=== PATIENT | male | born 1930 | race Caucasian/White ===

== ENCOUNTER → 2017-04-28 | Outpatient (CLI) | payer MEDICARE, BC ==
[2015-07-09 09:15] VITALS: BMI 24.8
[~2017-04-28] MED LIST: AMOX-559 PO; ENOX40DI8 SQ; FLUD0.1T12 PO; GOLYTE PO; VIT-9 PO; VIT1CAPS39 PO; WARF-18 PO; WARF2.5T11 PO
--- NOTE | 2017-05-01 06:19 | RT HOLTER TEST ---
FACILITY: [facility] PATIENT NAME: GENEVIEVE CLINE : [id number] MR: [id number] V: [id number] EXAM DATE: ORDERING PHYSICIAN: SARA POOLE TECHNOLOGIST: OMAR Hook-up date: 2017-04-28 13:04:00 Duration: 47:59:00 Test Indications: HYPOTENSION Medications: [id number] QRS complexes 83 Ventricular ectopics which represent <1 % of total QRS comp. 119 Supraventricular ectopics which represent <1 % of total QRS comp. * Paced QRS complexes which represent % of total QRS comp. VENTRICULAR ECTOPY 81 Isolated 0 Bigeminal Cycles 1 Couplets 0 Runs 0 Beats in Runs * Beats LONGEST at * BPM at :: -- * Beats FASTEST at * BPM at :: -- SUPRAVENTRICULAR ECTOPY 75 Isolated 10 Couplets 4 Runs 24 Beats in Runs 15 Beats LONGEST at 124 BPM at 03:35:34 2017-04-30 15 Beats FASTEST at 124 BPM at 03:35:34 2017-04-30 HEART RATES 51 MIN at 22:20:18 2017-04-28 68 AVG 132 MAX at 03:35:37 2017-04-30 LONGEST RR 1.552 secs at 22:20:13 2017-04-28 S-T LEVELS Channel 1 -12.800 mm MIN at 13:04:00 2017-04-28 -12.800 mm MAX at 13:04:00 2017-04-28 Channel 2 -12.800 mm MIN at 13:04:00 2017-04-28 -12.800 mm MAX at 13:04:00 2017-04-28 Channel 3 -12.800 mm MIN at 13:04:00 2017-04-28 -12.800 mm MAX at 13:04:00 2017-04-28 There were no arrhythymias with symptom events. The patient had a bundle branch block and was in a s inus rhythm predominantly during the test. There were occasional asymptomatic ventricular (VE) ectopy and supraventricular ectopy (SVE). There was one 24 beat run of SVE that was about 132 beats per minute. Confirmed by KEDAR SMITH ([id number]) on 05/01/2017 6:19:31 AM Referred By: Overread By: KEDAR SMITH
== END ==
LOC: RESP 07:08
PROVIDERS: ATTEND Physician Assistant
DX: R42 Dizziness and giddiness (principal); I45.9 Conduction disorder, unspecified; E27.1 Primary adrenocortical insufficiency
CPT/HCPCS: 93225; 93226

== ENCOUNTER → 2017-05-17 | Outpatient (CLI) | payer MEDICARE, BC ==
[2015-07-09 09:15] VITALS: BMI 24.8
[~2017-05-17] MED LIST changes: -WARF-18 PO; +WARF5TAB23 PO
== END ==
LOC: LAB 13:07
PROVIDERS: ATTEND Internal Medicine Cardiovascular Disease
DX: I95.1 Orthostatic hypotension (principal); Z79.899 Other long term (current) drug therapy
CPT/HCPCS: 36415; 84443

== ENCOUNTER → 2017-07-19 | Outpatient (CLI) | payer MEDICARE, BC ==
[2015-07-09 09:15] VITALS: BMI 24.8
[~2017-07-19] MED LIST changes: +REGADENOSON 0.4 MG/5 ML SYR ONE
--- NOTE | 2017-07-20 14:17 | RADIOLOGY IMAGING REPORT ---
FACILITY: [facility] PATIENT NAME: Gary Puente : 1930 MR: [id number] V: [id number] EXAM DATE: ORDERING PHYSICIAN: NAMITA LANG TECHNOLOGIST: Location: [facility] - [place] Patient: Gary Puente : 1930 Visit/Account:[id number] Date of Sevice: 07/19/2017 REGADENOSON (LEXISCAN) MYOCARDIAL PERFUSION IMAGING. EXAMINATION: Single isotope SPECT imaging with regadenoson infusion and gated SPECT imaging. DATE OF EXAMINATION: July 19, 2017. REQUESTING PHYSICIAN:RICKEY INDICATION: Dizziness low blood pressure PROCEDURE: After informed consent the patient received an intravenous injection of Tc-99m sestamibi followed at an appropriate time interval by rest imaging. The patient then subsequently received an intravenous infusion of 0.4 mg of regadenoson per protocol without complication. Resting heart rate was 61 bpm with a peak heart rate of 86 bpm. Blood pressure at rest was 158/86 and following infusi on was 117/61 . Baseline EKG demonstrates sinus rhythm with a left bundle-branch block. There were no EKG changes of ischemia following infusion. Non-specific symptoms were reported. The patient the n received an intravenous injection of Tc-99m sestamibi followed by stress imaging. DOSE of Tc-99m sestamibi (mCi): REST: 11.7 STRESS: 29.6 RAW DATA: Examination of the summed raw data revealed a good quality study. MYOCARDIAL PERFUSION: The tomographic images demonstrate normal myocardial perfusion without compell ing evidence for myocardial ischemia or infarct. GATED IMAGES: The gated images demonstrate septal hypokinesis with preserved LV function with LVEF 5 8%. IMPRESSION: 1. Nondiagnostic ECG portion of Lexiscan stress test. Left bundle-branch block noted throughout the study 2. Normal myocardial perfusion study without compelling evidence for myocardial ischemia or infarct 3. Normal LV systolic performance with LVEF 58% with septal wall motion abnormality related to left b undle-branch block noted on EKG. Report Dictated By: Roger Hughes at 07/20/2017 2:10 PM Report E-Signed By: Roger Hughes at 07/20/2017 2:14 PM WSN:[id number]
--- NOTE | 2017-07-20 14:54 | RT STRESS TEST REPORT ---
FACILITY: [facility] - [place] PATIENT NAME: GENEVIEVE CLINE : [id number] MR: [id number] V: [id number] EXAM DATE: ORDERING PHYSICIAN: DEANDRE BUTLER TECHNOLOGIST: Jill Acquisition Time: 2017-07-19 14:22:25 Total Exercise Time: 00:01:00 Test Indications: dizziness Medications: SEE NUCLEAR MED SHEET Protocol: LEXISCAN Max HR: 086 BPM 63% of Pred: 136 BPM Max BP: 158/086 mmHG Max Work Load: 1.0 METS see nuclear med report Confirmed by JORDAN NOONAN ([id number]) on 07/20/2017 2:53:40 PM Referred By: Overread By: JORDAN NOONAN
== END ==
LOC: NUC 01:07
PROVIDERS: ATTEND Internal Medicine Cardiovascular Disease
DX: R42 Dizziness and giddiness (principal); I95.9 Hypotension, unspecified; I44.7 Left bundle-branch block, unspecified
CPT/HCPCS: 78452; 93017; A9500; J2785

== ENCOUNTER → 2017-10-26 | Outpatient (CLI) | payer MEDICARE, BC ==
[2015-07-09 09:15] VITALS: BMI 24.8
[~2017-10-26] MED LIST changes: +ACET500T68 PO; +MIDO5TAB20 PO; -REGADENOSON 0.4 MG/5 ML SYR ONE
== END ==
LOC: LAB 17:10
PROVIDERS: ATTEND Family Medicine
DX: Z02.9 Encounter for administrative examinations, unspecified (principal)

== ENCOUNTER → 2017-10-27 | Outpatient (CLI) | payer MEDICARE, BC ==
[2015-07-09 09:15] VITALS: BMI 24.8
[2017-10-27 15:01] LABS: PLATELET COUNT, AUTOMATED 151 K/uL (150-450)
== END ==
LOC: LAB 14:47
PROVIDERS: ATTEND Family Medicine
DX: E27.1 Primary adrenocortical insufficiency (principal)
CPT/HCPCS: 36415; 82040; 82247; 82310; 82374; 82435; 82565; 82947; 84075; 84132; 84155; 84295; 84450; 84460; 84520; 85025

== ENCOUNTER 2018-02-18 17:43 | Emergency (ER) | payer MEDICARE, BC ==
[2015-07-09 09:15] VITALS: Wt 59.0 kg
[~2018-02-18 17:43] MED LIST changes: -MULT-859 PO; -POTA20PA31 PO; -POTA20TA85 PO; -VENL75CA58 PO
--- NOTE | 2018-02-18 18:08 | ER Report ---
History and Physical Time Seen By MD: 18:03 Hx. of Stated Complaint: possible seizure witness are not here yet HPI/ROS CHIEF COMPLAINT: syncope and shaking HISTORY OF PRESENT ILLNESS: This is an 87 year old male. He has postural hypotension, on Midodrine and fludricortisone. Had an episode while up and going to the bathroom where he felt dizzy, was clinging to the door frame. His found him and helped lower him to the seat of the walker. Started to have an episode of syncope with some shaking of his arms, then came back to consciousness, normal level immediately, without any signs of a post-ictal state. No history of seizures. No chest pain or shortness of breath. No headache. Normal vision. No fevers or chills. No cough or sore throat. He has normal bowel and bladder function. Many episodes of passing out from the hypotension in the past. No chest pain at this time. Allergies: Coded Allergies: No Known Drug Allergies (Unverified , 02/18/18) Home Meds Active Scripts Sertraline Hcl (SERTRALINE HCL) 25 Mg Tablet, 0.5 TAB PO QDAY for 30 Days, #30 TAB Prov:RENU ESCUDERO MD 02/09/18 Midodrine Hcl (MIDODRINE HCL) 10 Mg Tablet, 10 MG PO TID for 30 Days, #90 TAB 4 Refills Prov:RENU ESCUDERO MD 01/24/18 Fludrocortisone Acetate (FLUDROCORTISONE ACETATE) 0.1 Mg Tablet, 0.1 MG PO BID for 30 Days, #60 TAB 4 Refills Prov:RENU ESCUDERO MD 12/19/17 Reported Medications Warfarin Sodium (WARFARIN SODIUM) 2.5 Mg Tablet, 2.5 MG PO QDAY 09/26/17 Acetaminophen (TYLENOL EXTRA STRENGTH) 500 Mg Tablet, 2 TAB PO 2-3XD, CAP 09/19/17 Reviewed Nurses Notes: Yes Hx Smoking: Yes (CHEW 1/4 CAN/DAY X 50 YRS) Smoking Status: Never Smoker Exposure to Second Hand Smoke?: No Hx Substance Use Disorder: No Hx Alcohol Use: No Constitutional Vital Sign - Last 24 Hours 02/18/18 02/18/18 02/18/18 02/18/18 17:43 17:47 17:50 17:54 Temp 97.5 Pulse 69 70 Resp 14 12 B/P (MAP) 145/85 (105) 145/85 Pulse Ox 99 98 O2 Delivery Nasal Cannula O2 Flow Rate 2.0 02/18/18 02/18/18 02/18/18 02/18/18 18:00 18:13 18:18 18:30 Pulse 68 69 Resp 21 11 B/P (MAP) 153/81 (105) 146/79 (101) Pulse Ox 98 97 02/18/18 02/18/18 02/18/18 02/18/18 18:35 19:05 19:10 19:25 Pulse 68 75 73 74 Resp 17 12 11 Pulse Ox 98 98 97 98 02/18/18 02/18/18 02/18/18 02/18/18 19:30 19:40 19:55 20:00 Pulse 74 75 Resp 23 16 B/P (MAP) 126/73 (90) 120/73 (89) Pulse Ox 98 98 02/18/18 02/18/18 20:10 20:15 Pulse 72 77 Resp 20 21 Pulse Ox 98 98 Physical Exam General Appearance: The patient is alert. No acute distress. Eyes: Pupils are equal, round. Reactive to light. No pallor, injection or icterus. Extraocular movements are intact. ENT: Mucous membranes are moist. Normal oral mucosa. Posterior oropharynx is normal. Neck: Supple and non tender. No lymphadenopathy. Respiratory: Lungs are clear to auscultation. Cardiovascular: Regular rate and rhythm. No murmurs, gallops or rubs. Normal capillary refill. No edema. Gastrointestinal: Abdomen is soft and non tender. Nondistended. No masses or organomegaly. Normal active bowel sounds. Neurological: Alert and oriented x3. Cranial nerves II through XII show no acute deficits on my exam. No focal neurologic deficits in the extremities. Skin: Warm and dry. Musculoskeletal: Extremities are nontender. No tenderness in palpation of the cervical, thoracic and lumbar spine. DIFFERENTIAL DIAGNOSIS: After history and physical exam, differential diagnosis was considered for syncope including but not limited to vasovagal syncope, arrhythmia, dehydration, and blood loss. Medical Decision Making Data Points Result Diagram: 02/18/18 1740 02/18/18 1740 Laboratory Hematology Test 02/18/18 17:40 Red Blood Count 4.95 M/uL (4.00-5.60) Mean Corpuscular Volume 90.9 fL (80.0-96.0) Mean Corpuscular Hemoglobin 31.9 pg (26.0-33.0) Mean Corpuscular Hemoglobin Concent 35.1 g/dL (32.0-36.0) Red Cell Distribution Width 13.1 % (11.5-14.5) Mean Platelet Volume 8.3 fL (7.2-11.1) Neutrophils (%) (Auto) 54.2 % (39.4-72.5) Lymphocytes (%) (Auto) 34.9 % (17.6-49.6) Monocytes (%) (Auto) 7.7 % (4.1-12.4) Eosinophils (%) (Auto) 2.0 % (0.4-6.7) Basophils (%) (Auto) 1.2 % (0.3-1.4) Nucleated RBC Relative Count (auto) 0.2 /100WBC Neutrophils # (Auto) 3.3 K/uL (2.0-7.4) Lymphocytes # (Auto) 2.1 K/uL (1.3-3.6) Monocytes # (Auto) 0.5 K/uL (0.3-1.0) Eosinophils # (Auto) 0.1 K/uL (0.0-0.5) Basophils # (Auto) 0.1 K/uL (0.0-0.1) Nucleated RBC Absolute Count (auto) 0.01 K/uL Prothrombin Time 17.6 seconds (12.0-14.4) Prothromb Time International Ratio 1.43 Sodium Level 140 mmol/L (137-145) Potassium Level 3.1 mmol/L (3.5-5.0) Chloride Level 104 mmol/L (98-107) Carbon Dioxide Level 28 mmol/L (22-30) Blood Urea Nitrogen 15 mg/dl (9-21) Creatinine 0.90 mg/dl (0.66-1.25) Glomerular Filtration Rate Calc > 60.0 Random Glucose 102 mg/dl (75-110) Calcium Level 9.5 mg/dl (8.4-10.2) Magnesium Level 2.3 mg/dl (1.7-2.2) Total Bilirubin 0.7 mg/dl (0.2-1.3) Aspartate Amino Transf (AST/SGOT) 30 U/L (0-35) Alanine Aminotransferase (ALT/SGPT) 44 U/L (0-56) Alkaline Phosphatase 118 U/L (0-126) Troponin I < 0.012 ng/ml Total Protein 6.9 g/dl (6.3-8.2) Albumin 4.0 g/dl (3.5-5.0) Chemistry Test 02/18/18 17:40 White Blood Count 6.0 k/uL (4.5-11.0) Red Blood Count 4.95 M/uL (4.00-5.60) Hemoglobin 15.8 g/dL (14.0-18.0) Hematocrit 45.0 % (42.0-52.0) Mean Corpuscular Volume 90.9 fL (80.0-96.0) Mean Corpuscular Hemoglobin 31.9 pg (26.0-33.0) Mean Corpuscular Hemoglobin Concent 35.1 g/dL (32.0-36.0) Red Cell Distribution Width 13.1 % (11.5-14.5) Platelet Count 175 K/uL (150-450) Mean Platelet Volume 8.3 fL (7.2-11.1) Neutrophils (%) (Auto) 54.2 % (39.4-72.5) Lymphocytes (%) (Auto) 34.9 % (17.6-49.6) Monocytes (%) (Auto) 7.7 % (4.1-12.4) Eosinophils (%) (Auto) 2.0 % (0.4-6.7) Basophils (%) (Auto) 1.2 % (0.3-1.4) Nucleated RBC Relative Count (auto) 0.2 /100WBC Neutrophils # (Auto) 3.3 K/uL (2.0-7.4) Lymphocytes # (Auto) 2.1 K/uL (1.3-3.6) Monocytes # (Auto) 0.5 K/uL (0.3-1.0) Eosinophils # (Auto) 0.1 K/uL (0.0-0.5) Basophils # (Auto) 0.1 K/uL (0.0-0.1) Nucleated RBC Absolute Count (auto) 0.01 K/uL Prothrombin Time 17.6 seconds (12.0-14.4) Prothromb Time International Ratio 1.43 Glomerular Filtration Rate Calc > 60.0 Calcium Level 9.5 mg/dl (8.4-10.2) Magnesium Level 2.3 mg/dl (1.7-2.2) Total Bilirubin 0.7 mg/dl (0.2-1.3) Aspartate Amino Transf (AST/SGOT) 30 U/L (0-35) Alanine Aminotransferase (ALT/SGPT) 44 U/L (0-56) Alkaline Phosphatase 118 U/L (0-126) Troponin I < 0.012 ng/ml Total Protein 6.9 g/dl (6.3-8.2) Albumin 4.0 g/dl (3.5-5.0) Coagulation Test 02/18/18 17:40 Prothrombin Time 17.6 seconds Prothromb Time International Ratio 1.43 EKG/Imaging EKG Interpretation 12 lead EKG: Rhythm: Normal sinus rhythm, rate 68 [place]: Left deviation QRS: Left bundle branch block, similar on comparison to prior EKGs ST segments: Otherwise negative Imaging EXAMINATION: Head CT without intravenous contrast HISTORY: Syncope. COMPARISON: 02/09/2017. TECHNIQUE: Contiguous axial images were obtained from the skull base to the vertex without intravenous contrast. Sagittal and coronal reformatted images are also submitted. One of the following dose optimization techniques was utilized in the performance of this exam: Automated exposure control; adjustment of the mA and/or kV according to the patient's size; or use of an iterative reconstruction technique. Specific details can be referenced in the facility's radiology CT exam operational policy. FINDINGS: Brain and intracranial structures: Mild cerebral volume loss with corresponding sulcal and ventricular prominence. Unchanged multifocal encephalomalacia in the right cerebral hemisphere. Mild patchy hypoattenuation in the white matter elsewhere, similar to previous examination. No midline shift, acute hemorrhage, mass, or evidence of acute infarct. Vessels: Mild calcified plaque of the left carotid siphon. Calvarium / scalp: Negative. No acute fracture. Skull base / visualized face: Negative. Visualized sinuses / orbits: Lenses have been extracted or replaced. IMPRESSION: No CT evidence of acute intracranial pathology. Unchanged multifocal encephalomalacia. Mild white matter changes elsewhere, likely chronic small vessel ischemic changes Report Dictated By: Enrique Arciniega MD at 02/18/2018 7:11 PM CHEST SINGLE AP Indication: Syncope.. Comparison: 02/09/2017. Findings: Cardiomediastinal silhouette and pulmonary vessels within normal limits. There is no focal infiltrate or lobar consolidation. No pneumothorax or pleural effusion. No nodule. Upper abdomen is unremarkable. No acute bony abnormality. IMPRESSION: 1. No acute cardiopulmonary process. Report Dictated By: Carrington Fung at 02/18/2018 7:14 PM ED Course/Re-evaluation Clinical Indication for ER IV: Hydration, IV Access ED Course Labs, imaging and EKG are unremarkable. He is still dizzy with standing, but t aking his time he is okay. 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 Offered admission and talked briefly to the hospitalist, but the patient would like to try to go home at this time. Recommended increased fluid intake and also taking time when getting up. Follow- up with Dr. Escudero as planned. Decision to Disposition Date: Feb 18, 2018 Decision to Disposition Time: 20:17 Depart Departure Latest Vital Signs Vital Signs Date Time Temp Pulse Resp B/P (MAP) Pulse Ox O2 Delivery O2 Flow Rate FiO2 02/18/18 20:15 77 21 98 02/18/18 20:00 120/73 (89) 02/18/18 17:54 2.0 02/18/18 17:50 97.5 Nasal Cannula Impression: Primary Impression: Syncope Additional Impression: Hypotension Condition: Improved Disposition: HOME OR SELF-CARE Referrals: RENU ESCUDERO MD (PCP) Patient Instructions: Syncope (ED) Additional Instructions: Increase fluid intake. No changes to medications. Take time when getting up and sit down if feeling lightheaded. Follow-up with Dr. Escudero as planned. Problem Qualifiers Primary Impression: Syncope Syncope type: unspecified Qualified Codes: R55 - Syncope and collapse Additional Impression: Hypotension Hypotension type: other hypotension type Qualified Codes: I95.89 - Other hypotension MOE MEDINA MD Feb 18, 2018 18:08
[2018-02-18 18:40] LABS: PLATELET COUNT, AUTOMATED 175 K/uL (150-450)
[2018-02-18 18:43] LABS: INR 1.43
--- NOTE | 2018-02-18 19:19 | RADIOLOGY IMAGING REPORT ---
FACILITY: [facility] - [place] PATIENT NAME: Gary Puente : 1930 MR: [id number] V: [id number] EXAM DATE: ORDERING PHYSICIAN: MOE MEDINA TECHNOLOGIST: Location: [facility] Patient: Gary Puente : 1930 Visit/Account:[id number] Date of Sevice: 02/18/2018 CHEST SINGLE AP Indication: Syncope.. Comparison: 02/09/2017. Findings: Cardiomediastinal silhouette and pulmonary vessels within normal limits. There is no focal infiltrate or lobar consolidation. No pneumothorax or pleural effusion. No nodule. Upper abdomen is unremarkable. No acute bony abnormality. IMPRESSION: 1. No acute cardiopulmonary process. Report Dictated By: Carrington Fung at 02/18/2018 7:14 PM Report E-Signed By: Carrington Fung at 02/18/2018 7:16 PM WSN:[id number]
--- NOTE | 2018-02-18 19:22 | RADIOLOGY IMAGING REPORT ---
FACILITY: [facility] PATIENT NAME: Gary Puente : 1930 MR: [id number] V: [id number] EXAM DATE: ORDERING PHYSICIAN: MOE MEDINA TECHNOLOGIST: Location: Patient: Gary Puente : 1930 Visit/Account:[id number] Date of Sevice: 02/18/2018 EXAMINATION: Head CT without intravenous contrast HISTORY: Syncope. COMPARISON: 02/09/2017. TECHNIQUE: Contiguous axial images were obtained from the skull base to the vertex without intraven ous contrast. Sagittal and coronal reformatted images are also submitted. One of the following dose optimization techniques was utilized in the performance of this exam: Autom ated exposure control; adjustment of the mA and/or kV according to the patient's size; or use of an i terative reconstruction technique. Specific details can be referenced in the facility's radiology C T exam operational policy. FINDINGS: Brain and intracranial structures: Mild cerebral volume loss with corresponding sulcal and ventricul ar prominence. Unchanged multifocal encephalomalacia in the right cerebral hemisphere. Mild patchy hypoattenuation in the white matter elsewhere, similar to previous examination. No midline shift, acute hemorrhage, mass, or evidence of acute infarct. Vessels: Mild calcified plaque of the left carotid siphon. Calvarium / scalp: Negative. No acute fracture. Skull base / visualized face: Negative. Visualized sinuses / orbits: Lenses have been extracted or replaced. IMPRESSION: No CT evidence of acute intracranial pathology. Unchanged multifocal encephalomalacia. Mild white matter changes elsewhere, likely chronic small ves ronel ischemic changes Report Dictated By: Enrique Arciniega MD at 02/18/2018 7:11 PM Report E-Signed By: Enrique Arciniega MD at 02/18/2018 7:18 PM WSN:[id number]
[2018-02-18 20:00] VITALS: BP 120/73
--- NOTE | 2018-02-18 20:02 | EKG ---
FACILITY: [facility] - [place] PATIENT NAME: GENEVIEVE CLINE : [id number] MR: [id number] V: [id number] EXAM DATE: ORDERING PHYSICIAN: MOE MEDINA TECHNOLOGIST: System Test Reason : NUEURO Blood Pressure : / mmHG Vent. Rate : 068 BPM Atrial Rate : 068 BPM P-R Int : 150 ms QRS Dur : 156 ms QT Int : 498 ms P-R-T Axes : 056 044 176 degrees QTc Int : 529 ms Normal sinus rhythm Left bundle branch block Abnormal ECG When compared with ECG of 09-FEB-2017 14:12, No significant change was found Confirmed by Sumit Underwood ([id number]) on 02/19/2018 7:14:02 AM Referred By: Confirmed By:Sumit Conley
== END 2018-02-18 20:29 | disposition home or self-care (01) ==
LOC: ER 18:18
DX: R55 Syncope and collapse (principal); I95.89 Other hypotension
CPT/HCPCS: 70450; 71045; 82040; 82247; 82310; 82374; 82435; 82565; 82947; 83735; 84075; 84132; 84155; 84295; 84450; 84460; 84484; 84520; 85025; 85610; 93005; 99284

== ENCOUNTER → 2018-02-18 | Outpatient (CLI) | payer MEDICARE, BC ==
[2015-07-09 09:15] VITALS: BMI 24.8
[~2018-02-18] MED LIST changes: +MIDO10TA9 PO; +MULT-859 PO; +POTA20PA31 PO; +POTA20TA85 PO; +SERT25TA90 PO; +VENL75CA58 PO
== END ==
LOC: AMB 17:10
PROVIDERS: ATTEND Nurse Practitioner
DX: R56.9 Unspecified convulsions (principal); I10 Essential (primary) hypertension
CPT/HCPCS: A0425; A0427

== ENCOUNTER 2018-02-19 09:19 | Emergency (ER) | payer MEDICARE, BC, OTHER ==
[2015-07-09 09:15] VITALS: Wt 63.5 kg
[~2018-02-19 09:19] MED LIST changes: -MULT-859 PO; -POTA20PA31 PO; -POTA20TA85 PO; -VENL75CA58 PO
--- NOTE | 2018-02-19 11:00 | EKG ---
FACILITY: [facility] [place] PATIENT NAME: GENEVIEVE CLINE : [id number] MR: [id number] V: [id number] EXAM DATE: ORDERING PHYSICIAN: LUZ ELENA COOPER TECHNOLOGIST: Test Reason : Blood Pressure : / mmHG Vent. Rate : 075 BPM Atrial Rate : 075 BPM P-R Int : 152 ms QRS Dur : 150 ms QT Int : 474 ms P-R-T Axes : 062 050 214 degrees QTc Int : 529 ms Normal sinus rhythm Left bundle branch block Abnormal ECG When compared with ECG of 18-FEB-2018 17:55, No significant change was found Confirmed by DEANDRE BUTLER ([id number]) on 02/20/2018 6:32:21 AM Referred By: Confirmed By:DEANDRE BUTLER
[2018-02-19 11:02] LABS: PLATELET COUNT, AUTOMATED 151 K/uL (150-450)
--- NOTE | 2018-02-19 11:05 | RADIOLOGY IMAGING REPORT ---
FACILITY: [facility] - [place] PATIENT NAME: Gary Puente : 1930 MR: [id number] V: [id number] EXAM DATE: ORDERING PHYSICIAN: LUZ ELENA COOPER TECHNOLOGIST: Location: [facility] - [place] Patient: Gary Puente : 1930 Visit/Account:[id number] Date of Sevice: 02/19/2018 Chest single view: HISTORY: Presyncope. COMPARISON: 02/18/2018 FINDINGS: Portable chest 1036 hours: Cardiomediastinal silhouette is within normal limits. There is no infiltrate or pleural effusion. No pneumothorax. Pulmonary vasculature is normal. IMPRESSION: No evidence of acute cardiopulmonary abnormality. Report Dictated By: Supriya Celestin MD at 02/19/2018 10:54 AM Report E-Signed By: Supriya Celestin MD at 02/19/2018 11:02 AM WSN:[id number]
[2018-02-19 11:56] VITALS: BP 139/76
--- NOTE | 2018-02-19 13:07 | ER Report ---
History and Physical Time Seen By MD: 09:45 Hx. of Stated Complaint: "I want to " HPI/ROS This is an 87-year-old male with a history of depression and Luckey's disease. He presents to the emergency department for the 2nd time in 24 hours. He was seen yesterday for presyncope. He returns to emergency department today with suicidal ideations. His family witnessed him looking for the ammunition that goes into his revolver at home. When they asked him, the patient stated that he had a plan to kill himself due to his ongoing illnesses. He is calm and cooperative in the emergency department, and states his family doesn't understand that he no longer wants to live with his chronic illness. He endorses SI. He feels as if it is his decision whether or not to kill himself, and states that his family does not understand. He has no other complaints. Remainder of the 14 system rev: Yes Allergies: Coded Allergies: No Known Drug Allergies (Unverified , 02/19/18) Home Meds Active Scripts Sertraline Hcl (SERTRALINE HCL) 25 Mg Tablet, 0.5 TAB PO QDAY for 30 Days, #30 TAB Prov:RENU ESCUDERO MD 02/09/18 Midodrine Hcl (MIDODRINE HCL) 10 Mg Tablet, 10 MG PO TID for 30 Days, #90 TAB 4 Refills Prov:RENU ESCUDERO MD 01/24/18 Fludrocortisone Acetate (FLUDROCORTISONE ACETATE) 0.1 Mg Tablet, 0.1 MG PO BID f or 30 Days, #60 TAB 4 Refills Prov:RENU ESCUDERO MD 12/19/17 Reported Medications Warfarin Sodium (WARFARIN SODIUM) 2.5 Mg Tablet, 2.5 MG PO QDAY 09/26/17 Acetaminophen (TYLENOL EXTRA STRENGTH) 500 Mg Tablet, 2 TAB PO 2-3XD, CAP 09/19/17 Reviewed Nurses Notes: Yes Old Medical Records Reviewed: Yes Hx Smoking: Yes (CHEW 1/4 CAN/DAY X 50 YRS) Smoking Status: Never Smoker Exposure to Second Hand Smoke?: No Hx Substance Use Disorder: No Hx Alcohol Use: No Constitutional Vital Sign - Last 24 Hours 02/19/18 02/19/18 02/19/18 02/19/18 09:37 09:49 10:19 10:49 Temp 98.1 Pulse 77 79 76 77 Resp 13 B/P (MAP) 121/60 138/77 (97) Pulse Ox 93 96 93 94 O2 Delivery Room Air Room Air Room Air Room Air 02/19/18 02/19/18 02/19/18 10:54 11:54 11:56 Temp 98.0 Pulse 77 77 B/P (MAP) 139/76 (97) Pulse Ox 94 93 O2 Delivery Room Air Physical Exam General Appearance: The patient is alert, has no immediate need for airway protection and no current signs of toxicity. Eyes: Pupils equal and round no injection. Respiratory: Chest is non tender, lungs are clear to auscultation. Cardiac: regular rate and rhythm Gastrointestinal: Abdomen is soft and non tender, no masses, bowel sounds merary l. Neck: Neck is supple and non tender. Extremities have full range of motion and are non tender. Skin: No rashes or lesions. DIFFERENTIAL DIAGNOSIS: After history and physical exam differential diagnosis was considered for depression including functional and major depression, situational depression, medication side effect, drugs and alcohol abuse. Medical Decision Making Data Points Result Diagram: 02/19/18 1056 02/19/18 1056 Laboratory Hematology Test 02/19/18 10:56 02/19/18 11:43 Red Blood Count 4.59 M/uL (4.00-5.60) Mean Corpuscular Volume 92.3 fL (80.0-96.0) Mean Corpuscular Hemoglobin 32.2 pg (26.0-33.0) Mean Corpuscular Hemoglobin Concent 34.9 g/dL (32.0-36.0) Red Cell Distribution Width 13.3 % (11.5-14.5) Mean Platelet Volume 7.8 fL (7.2-11.1) Neutrophils (%) (Auto) 65.9 % (39.4-72.5) Lymphocytes (%) (Auto) 24.4 % (17.6-49.6) Monocytes (%) (Auto) 8.6 % (4.1-12.4) Eosinophils (%) (Auto) 0.7 % (0.4-6.7) Basophils (%) (Auto) 0.4 % (0.3-1.4) Nucleated RBC Relative Count (auto) 0.1 /100WBC Neutrophils # (Auto) 3.7 K/uL (2.0-7.4) Lymphocytes # (Auto) 1.4 K/uL (1.3-3.6) Monocytes # (Auto) 0.5 K/uL (0.3-1.0) Eosinophils # (Auto) 0.0 K/uL (0.0-0.5) Basophils # (Auto) 0.0 K/uL (0.0-0.1) Nucleated RBC Absolute Count (auto) 0.01 K/uL Sodium Level 140 mmol/L (137-145) Potassium Level 3.4 mmol/L (3.5-5.0) Chloride Level 104 mmol/L (98-107) Carbon Dioxide Level 27 mmol/L (22-30) Blood Urea Nitrogen 15 mg/dl (9-21) Creatinine 0.90 mg/dl (0.66-1.25) Glomerular Filtration Rate Calc > 60.0 Random Glucose 108 mg/dl (75-110) Calcium Level 9.3 mg/dl (8.4-10.2) Magnesium Level 2.3 mg/dl (1.7-2.2) Total Bilirubin 1.2 mg/dl (0.2-1.3) Aspartate Amino Transf (AST/SGOT) 25 U/L (0-35) Alanine Aminotransferase (ALT/SGPT) 42 U/L (0-56) Alkaline Phosphatase 100 U/L (0-126) Troponin I < 0.012 ng/ml Total Protein 6.7 g/dl (6.3-8.2) Albumin 3.8 g/dl (3.5-5.0) Thyroid Stimulating Hormone (TSH) 0.80 uIU/ml (0.46-4.68) Salicylates Level < 10 mg/L Salicylate Last Dose Date u Acetaminophen Level < 10 ug/ml Serum Alcohol < 10 mg/dl Urine Color Yellow Urine Clarity Slightly-cloudy Urine pH 6.0 pH (4.8-9.5) Urine Specific [place] 1.017 Urine Protein Negative mg/dL (NEGATIVE) Urine Glucose (UA) Negative mg/dL (NEGATIVE) Urine Ketones Trace mg/dL (NEGATIVE) Urine Blood Negative (NEGATIVE) Urine Nitrite Negative (NEGATIVE) Urine Bilirubin Negative (NEGATIVE) Urine Urobilinogen 4.0 mg/dL (0.2-1.9) Urine Leukocyte Esterase Trace (NEGATIVE) Urine RBC None /HPF (0-2/HPF) Urine WBC 3 /HPF (0-5/HPF) Urine Squamous Epithelial Cells Few /LPF (</=FEW) Urine Bacteria Negative /HPF (NONE-FEW) Urine Hyaline Casts Few /LPF (NONE-FEW) Urine Mucus Few /HPF (NONE-FEW) Urine Opiates Screen Negative Urine Barbiturates Screen Negative Ur Tricyclic Antidepressants Screen Negative Urine Phencyclidine Screen Negative Urine Amphetamines Screen Negative Urine Benzodiazepines Screen Negative Urine Cocaine Screen Negative Urine Cannabinoids Screen Negative Chemistry Test 02/19/18 10:56 02/19/18 11:43 White Blood Count 5.6 k/uL (4.5-11.0) Red Blood Count 4.59 M/uL (4.00-5.60) Hemoglobin 14.8 g/dL (14.0-18.0) Hematocrit 42.4 % (42.0-52.0) Mean Corpuscular Volume 92.3 fL (80.0-96.0) Mean Corpuscular Hemoglobin 32.2 pg (26.0-33.0) Mean Corpuscular Hemoglobin Concent 34.9 g/dL (32.0-36.0) Red Cell Distribution Width 13.3 % (11.5-14.5) Platelet Count 151 K/uL (150-450) Mean Platelet Volume 7.8 fL (7.2-11.1) Neutrophils (%) (Auto) 65.9 % (39.4-72.5) Lymphocytes (%) (Auto) 24.4 % (17.6-49.6) Monocytes (%) (Auto) 8.6 % (4.1-12.4) Eosinophils (%) (Auto) 0.7 % (0.4-6.7) Basophils (%) (Auto) 0.4 % (0.3-1.4) Nucleated RBC Relative Count (auto) 0.1 /100WBC Neutrophils # (Auto) 3.7 K/uL (2.0-7.4) Lymphocytes # (Auto) 1.4 K/uL (1.3-3.6) Monocytes # (Auto) 0.5 K/uL (0.3-1.0) Eosinophils # (Auto) 0.0 K/uL (0.0-0.5) Basophils # (Auto) 0.0 K/uL (0.0-0.1) Nucleated RBC Absolute Count (auto) 0.01 K/uL Glomerular Filtration Rate Calc > 60.0 Calcium Level 9.3 mg/dl (8.4-10.2) Magnesium Level 2.3 mg/dl (1.7-2.2) Total Bilirubin 1.2 mg/dl (0.2-1.3) Aspartate Amino Transf (AST/SGOT) 25 U/L (0-35) Alanine Aminotransferase (ALT/SGPT) 42 U/L (0-56) Alkaline Phosphatase 100 U/L (0-126) Troponin I < 0.012 ng/ml Total Protein 6.7 g/dl (6.3-8.2) Albumin 3.8 g/dl (3.5-5.0) Thyroid Stimulating Hormone (TSH) 0.80 uIU/ml (0.46-4.68) Salicylates Level < 10 mg/L Salicylate Last Dose Date u Acetaminophen Level < 10 ug/ml Serum Alcohol < 10 mg/dl Urine Color Yellow Urine Clarity Slightly-cloudy Urine pH 6.0 pH (4.8-9.5) Urine Specific [place] 1.017 Urine Protein Negative mg/dL (NEGATIVE) Urine Glucose (UA) Negative mg/dL (NEGATIVE) Urine Ketones Trace mg/dL (NEGATIVE) Urine Blood Negative (NEGATIVE) Urine Nitrite Negative (NEGATIVE) Urine Bilirubin Negative (NEGATIVE) Urine Urobilinogen 4.0 mg/dL (0.2-1.9) Urine Leukocyte Esterase Trace (NEGATIVE) Urine RBC None /HPF (0-2/HPF) Urine WBC 3 /HPF (0-5/HPF) Urine Squamous Epithelial Cells Few /LPF (</=FEW) Urine Bacteria Negative /HPF (NONE-FEW) Urine Hyaline Casts Few /LPF (NONE-FEW) Urine Mucus Few /HPF (NONE-FEW) Urine Opiates Screen Negative Urine Barbiturates Screen Negative Ur Tricyclic Antidepressants Screen Negative Urine Phencyclidine Screen Negative Urine Amphetamines Screen Negative Urine Benzodiazepines Screen Negative Urine Cocaine Screen Negative Urine Cannabinoids Screen Negative Toxicology Test 02/19/18 10:56 02/19/18 11:43 Salicylates Level < 10 mg/L Salicylate Last Dose Date u Acetaminophen Level < 10 ug/ml Serum Alcohol < 10 mg/dl Urine Opiates Screen Negative Urine Barbiturates Screen Negative Ur Tricyclic Antidepressants Screen Negative Urine Phencyclidine Screen Negative Urine Amphetamines Screen Negative Urine Benzodiazepines Screen Negative Urine Cocaine Screen Negative Urine Cannabinoids Screen Negative Urinalysis Test 02/19/18 11:43 Urine Color Yellow Urine Clarity Slightly-cloudy Urine pH 6.0 pH (4.8-9.5) Urine Specific [place] 1.017 Urine Protein Negative mg/dL (NEGATIVE) Urine Glucose (UA) Negative mg/dL (NEGATIVE) Urine Ketones Trace mg/dL (NEGATIVE) Urine Blood Negative (NEGATIVE) Urine Nitrite Negative (NEGATIVE) Urine Bilirubin Negative (NEGATIVE) Urine Urobilinogen 4.0 mg/dL (0.2-1.9) Urine Leukocyte Esterase Trace (NEGATIVE) Urine RBC None /HPF (0-2/HPF) Urine WBC 3 /HPF (0-5/HPF) Urine Squamous Epithelial Cells Few /LPF (</=FEW) Urine Bacteria Negative /HPF (NONE-FEW) Urine Hyaline Casts Few /LPF (NONE-FEW) Urine Mucus Few /HPF (NONE-FEW) ED Course/Re-evaluation ED Course 87-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 Family called paramedics and police today after they found him looking for the ammunition for his weapon in an effort to kill himself. The patient is calm and cooperative, and states that his family doesn't understand that it's okay to . He is depressed about his every day chronic disease, and feeling fatigued and weak on a daily basis. On a police usp that I will uphold. Will be admitted to for further stabilization. Decision to Disposition Date: Feb 19, 2018 Decision to Disposition Time: 13:10 Depart Departure Latest Vital Signs Vital Signs Date Time Temp Pulse Resp B/P (MAP) Pulse Ox O2 Delivery O2 Flow Rate FiO2 02/19/18 11:56 98.0 139/76 (97) 02/19/18 11:54 77 93 Room Air 02/19/18 09:37 13 Impression: Primary Impression: Suicidal intent Condition: Improved Disposition: XFER TO [facility] Referrals: RENU ESCUDERO MD (PCP) LUZ ELENA COOPER MD Feb 19, 2018 13:07
== END 2018-02-19 13:43 ==
LOC: ER 09:52
DX: R45.851 Suicidal ideations (principal); E27.1 Primary adrenocortical insufficiency; I44.7 Left bundle-branch block, unspecified
CPT/HCPCS: 36415; 71045; 80305; 81001; 83735; 84443; 84484; 85025; 99284; G0480; 80320; 80329; 82040; 82247; 82310; 82374; 82435; 82565; 82947; 84075; 84132; 84155; 84295; 84450; 84460; 84520

== ENCOUNTER 2018-02-19 13:14 | Inpatient (IN) | payer MEDICARE, BC, OTHER ==
[2015-07-09 09:15] VITALS: Ht 180.3 cm; Wt 63.5 kg
[~2018-02-19] VITALS: Ht 180.3 cm; Wt 63.5 kg
[2018-02-19] MEDS ORDERED: MAG HYD/AL HYD/SIMETH 30ML UDC PO PRN (14:00)
[2018-02-19 15:02] VITALS: BP 135/67
--- NOTE | 2018-02-19 16:56 | BHS - Psychiatric Evaluation ---
ER - Title 25 MHE Evaluation Title 25 Evaluation Patient Detained By: Law Enforcement Referral Source: Law Enforcement Date Patient Detained: Feb 19, 2018 Time Patient Detained: 10:00 Date Custodial Expires: Feb 23, 2018 Time Custodial Expires: 00:00 Legal Status: Police Hold: No Legal Status: Residence: [facility] Resident, State Resident Assessment Data Provided By: Patient, Law Enforcement, Other Source ([facility] staff) HPI/ROS: 87-year-old male with [place]'s disease and depression. Family called paramedics and police today after they found him looking for the ammunition for his weapon in an effort to kill himself. The patient is calm and cooperative, and states that his family doesn't understand that it's okay to . He is depressed about his every day chronic disease, and feeling fatigued and weak on a daily basis. On a police nursing home that I will uphold. Will be admitted to for further stabilization. Admit due to SI or Attempt: Yes Suicide Plan: Has Plan with Access Alcohol or Drugs Involved: No Is Patient Info Reliable: Yes Is Collateral Info Reliable: Yes (Unknown at this time, says he lives at home with his and son) Current Home Psych Meds: None Mental Status Exam General Appearance: Casual, Good Eye Contact, Cooperative, Polite, Good Interaction Speech: Clear Mood: Dysthmic/Depressed Affect: Sad Thought Process: Organized Thought Content: Suicidal Ideation Cognition: Alert & Oriented-Person, Alert & Oriented-Place, Alert & Oriented- Time Memory: Immediate, Recent Insight Judgment: Poor Sleep: Insomnia (Says he cannot sleep when he feels cold.) Hallucinations: Denies Delusions: Denies Current Risk & History Current Dangerous Risk Assessm: Current Suicide Ideation Past Dangerous Risk Assessm: Other (Denies any past ideation.) Previous Suicide Attempt: No Previous Attempt (Patient did not disclose any other attempts. ) Previous Psychiatric Illness: Yes (patient said he has had sadness related to chronic disease for a long time.) Previous Psychiatric Treatment: No Risk Assessment & Disposition Evaluated Risk Assessment: Patient risk for taking his life is high. He matter of factly states that he has been fighting disease for a long time. He told nursing staff he feels obsolete. Meets Mental Illness Req.: Yes Meets Dangerousness Req.: Yes Emergency Custodial to be: Upheld Decision Comment: Patient risk for taking his life is high. He matter of factly states that he has been fighting disease for a long time. He told nursing staff he feels obsolete. Date of Decision: Feb 19, 2018 Time of Decision: 17:15 Patient is Medically Stable at: Yes Disposition: [facility] Feb 19, 2018 16:56
[2018-02-19 20:46] VITALS: BP 110/62
[2018-02-19] MEDS: [UNRECOGNIZED DRUG - OTHER] PO SCH (20:46)
[2018-02-19] MEDS: MIDODRINE 2.5 MG TAB PO SCH (20:47)
[2018-02-20 04:38] VITALS: BP 145/69
[2018-02-20] MEDS: [UNRECOGNIZED DRUG - OTHER] PO SCH ×2 (08:38→20:49)
[2018-02-20] MEDS: MULTIVITAMINS PO SCH (08:38)
[2018-02-20] MEDS: MIDODRINE 2.5 MG TAB PO SCH ×3 (08:39→20:50)
[2018-02-20] MEDS ORDERED: SERTRALINE HCL 50 MG TAB PO SCH (09:00)
[2018-02-20 10:11] VITALS: BP 122/72
[2018-02-20] MEDS ORDERED: VENLAFAXINE XR 37.5 MG CAPCR PO ONE (13:45)
[2018-02-20] MEDS ORDERED: WARFARIN SOD 2.5 MG TAB PO ONE (13:45)
[2018-02-20 14:00] VITALS: BP 108/54
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
[2018-02-20 19:00] VITALS: BP 147/67
[2018-02-21 06:48] VITALS: BP 133/73
[2018-02-21] MEDS: MULTIVITAMINS PO SCH (08:17)
[2018-02-21] MEDS: MIDODRINE 2.5 MG TAB PO SCH ×3 (08:17→19:04)
[2018-02-21] MEDS: [UNRECOGNIZED DRUG - OTHER] PO SCH ×2 (08:20→19:03)
[2018-02-21] MEDS ORDERED: VENLAFAXINE XR 37.5 MG CAPCR PO SCH (09:00)
[2018-02-21] MEDS ORDERED: SERT25TA90 PO ×2 (09:06→09:21)
[2018-02-21] MEDS ORDERED: VENLAFAXINE XR 37.5 MG CAPCR PO ONE (09:30)
[2018-02-21 11:17] VITALS: BP 142/74
--- NOTE | 2018-02-21 12:15 | BHS Progress Note ---
[facility] - Subjective Progress Notes Subjective Patient ambulatory at times, and more so then would be expected at times. Spoke with patient's , who remains adamant about not having patient return home. Will increase Effexor today, will have OT/PT evaluate, and explore possibility of [facility]. Patient continues to verbalize thoughts of ending his life in relation to current medical stressors. Patient appears to sleep well, and has intact appetite. Suicidal Ideation: Ongoing Homicidal Ideation: None [facility] - Objective Physical Exam Vital Signs Hematology Test 02/20/18 06:03 Free Thyroxine 1.40 ng/dl (0.78-2.19) Chemistry Test 02/20/18 06:03 Free Thyroxine 1.40 ng/dl (0.78-2.19) Vital Signs Date Time Temp Pulse Resp B/P (MAP) Pulse Ox O2 Delivery O2 Flow Rate FiO2 02/21/18 06:48 98.5 71 133/73 (93) 95 Room Air 02/20/18 04:38 16 Muscle Strength and Tone: WNL Gait and Station: Unsteady [facility] Medications Reviewed: Side Effects, Benefits of Medication, Risks Allergies Reviewed: Yes Mental Status Exam General Appearance: Casual, Good Eye Contact, Cooperative, Polite, Good Interaction; No Tearful; Psychomotor Retardation; No Bizarre Mannerisms, No Tics Speech: Clear, Spontaneous, Normal Rate, Normal Volume (low), Normal Tone; No Rambling, No Inappropriate Mood: Dysthmic/Depressed (voicing dispair over current physical condition. ) Affect: Calm, Sad, Neutral Thought Process: Organized, Goal Directed; No Loose Associations, No Flight of Ideas Thought Content: Suicidal Ideation (ongoing, seemingly arrising out of current limitations. ); No Homicidal Ideation, No Delusions, No Auditory Halllucinations, No Visual Hallucinations, No Thought Broadcasting, No Ideas of Reference, No Obsessions, No Compulsions Cognition: Alert & Oriented-Person, Alert & Oriented-Place, Alert & Oriented- Time; No [id number] Memory: Immediate, Recent, Remote Intelligence: Average Insight Judgment: Poor (limited) [facility] Assessment and Plan [id number] Encounter Date: Feb 21, 2018 [id number] Encounter Time: 08:00 [facility] Plan: Necessary Precautions, Individual/Group Therapy, Admin/Titrate Meds, Educate Patient Tobacco Medications: Not Appropriate Condition Multpiple Antipsychotics Used: No Problems: (1) Persistent depressive disorder Status: Chronic Condition 1. increase Effexor. 2. hearing tomorrow. 3. [facility]. 4. PT/OT today. AG LUX MD Feb 21, 2018 12:15
[2018-02-21] MEDS: WARFARIN SOD 2.5 MG TAB PO SCH (12:58)
[2018-02-22 04:58] VITALS: BP 139/78
[2018-02-22 06:11] LABS: INR 1.3; PLATELET COUNT, AUTOMATED 142 K/uL (150-450)
[2018-02-22] MEDS: VENLAFAXINE XR 75 MG CAPCR PO SCH (08:50)
[2018-02-22] MEDS: [UNRECOGNIZED DRUG - OTHER] PO SCH ×2 (08:51→19:21)
[2018-02-22] MEDS: MULTIVITAMINS PO SCH (08:51)
[2018-02-22] MEDS: MIDODRINE 2.5 MG TAB PO SCH ×3 (08:51→19:21)
[2018-02-22] MEDS ORDERED: VENLAFAXINE XR 37.5 MG CAPCR PO SCH (09:00)
[2018-02-22 09:38] VITALS: BP 106/66
[2018-02-22 10:02] VITALS: BP 100/64
--- NOTE | 2018-02-22 10:24 | BHS Progress Note ---
S - Subjective Progress Notes Subjective Patient having hearing this AM, and is now on 10 day extension. Partner relational problem continues to unfold, and would seem to be more concerning than previously thought. Patient reporting to nursing staff that he reflects on his own suicidal intentions as now directly related to the dysfunction in the relationship with his of 17 years. Patient concerned that his may be diverting some of his finances, and that they do not "talk anymore", and again this directly relating to his decision to end his life. Will continue Effexor XR at current dose today. 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 Suicidal Ideation: None Homicidal Ideation: None S - Objective Physical Exam Vital Signs Hematology Test 02/20/18 06:03 02/22/18 05:47 Vitamin B12 Level 550 pg/mL (180-914) Vitamin D 1,25-Dihydroxy 53.0 pg/mL (19.9-79.3) Folate 16.1 ng/mL (>=5.9) Free Thyroxine 1.40 ng/dl (0.78-2.19) Free Triiodothyronine 2.6 pg/mL (2.4-4.2) Red Blood Count 4.37 M/uL (4.00-5.60) Mean Corpuscular Volume 91.5 fL (80.0-96.0) Mean Corpuscular Hemoglobin 32.4 pg (26.0-33.0) Mean Corpuscular Hemoglobin Concent 35.4 g/dL (32.0-36.0) Red Cell Distribution Width 12.8 % (11.5-14.5) Mean Platelet Volume 8.2 fL (7.2-11.1) Neutrophils (%) (Auto) 60.3 % (39.4-72.5) Lymphocytes (%) (Auto) 28.3 % (17.6-49.6) Monocytes (%) (Auto) 10.0 % (4.1-12.4) Eosinophils (%) (Auto) 1.1 % (0.4-6.7) Basophils (%) (Auto) 0.3 % (0.3-1.4) Nucleated RBC Relative Count (auto) 0.0 /100WBC Neutrophils # (Auto) 3.0 K/uL (2.0-7.4) Lymphocytes # (Auto) 1.4 K/uL (1.3-3.6) Monocytes # (Auto) 0.5 K/uL (0.3-1.0) Eosinophils # (Auto) 0.1 K/uL (0.0-0.5) Basophils # (Auto) 0.0 K/uL (0.0-0.1) Nucleated RBC Absolute Count (auto) 0.00 K/uL Prothrombin Time 16.3 seconds (12.0-14.4) Prothromb Time International Ratio 1.30 Sodium Level 140 mmol/L (137-145) Potassium Level 3.1 mmol/L (3.5-5.0) Chloride Level 105 mmol/L (98-107) Carbon Dioxide Level 29 mmol/L (22-30) Blood Urea Nitrogen 14 mg/dl (9-21) Creatinine 0.80 mg/dl (0.66-1.25) Glomerular Filtration Rate Calc > 60.0 Random Glucose 101 mg/dl (75-110) Calcium Level 9.3 mg/dl (8.4-10.2) Total Bilirubin 0.7 mg/dl (0.2-1.3) Aspartate Amino Transf (AST/SGOT) 23 U/L (0-35) Alanine Aminotransferase (ALT/SGPT) 40 U/L (0-56) Alkaline Phosphatase 92 U/L (0-126) Total Protein 5.8 g/dl (6.3-8.2) Albumin 3.3 g/dl (3.5-5.0) Chemistry Test 02/20/18 06:03 02/22/18 05:47 Vitamin B12 Level 550 pg/mL (180-914) Vitamin D 1,25-Dihydroxy 53.0 pg/mL (19.9-79.3) Folate 16.1 ng/mL (>=5.9) Free Thyroxine 1.40 ng/dl (0.78-2.19) Free Triiodothyronine 2.6 pg/mL (2.4-4.2) White Blood Count 4.9 k/uL (4.5-11.0) Red Blood Count 4.37 M/uL (4.00-5.60) Hemoglobin 14.1 g/dL (14.0-18.0) Hematocrit 40.0 % (42.0-52.0) Mean Corpuscular Volume 91.5 fL (80.0-96.0) Mean Corpuscular Hemoglobin 32.4 pg (26.0-33.0) Mean Corpuscular Hemoglobin Concent 35.4 g/dL (32.0-36.0) Red Cell Distribution Width 12.8 % (11.5-14.5) Platelet Count 142 K/uL (150-450) Mean Platelet Volume 8.2 fL (7.2-11.1) Neutrophils (%) (Auto) 60.3 % (39.4-72.5) Lymphocytes (%) (Auto) 28.3 % (17.6-49.6) Monocytes (%) (Auto) 10.0 % (4.1-12.4) Eosinophils (%) (Auto) 1.1 % (0.4-6.7) Basophils (%) (Auto) 0.3 % (0.3-1.4) Nucleated RBC Relative Count (auto) 0.0 /100WBC Neutrophils # (Auto) 3.0 K/uL (2.0-7.4) Lymphocytes # (Auto) 1.4 K/uL (1.3-3.6) Monocytes # (Auto) 0.5 K/uL (0.3-1.0) Eosinophils # (Auto) 0.1 K/uL (0.0-0.5) Basophils # (Auto) 0.0 K/uL (0.0-0.1) Nucleated RBC Absolute Count (auto) 0.00 K/uL Prothrombin Time 16.3 seconds (12.0-14.4) Prothromb Time International Ratio 1.30 Glomerular Filtration Rate Calc > 60.0 Calcium Level 9.3 mg/dl (8.4-10.2) Total Bilirubin 0.7 mg/dl (0.2-1.3) Aspartate Amino Transf (AST/SGOT) 23 U/L (0-35) Alanine Aminotransferase (ALT/SGPT) 40 U/L (0-56) Alkaline Phosphatase 92 U/L (0-126) Total Protein 5.8 g/dl (6.3-8.2) Albumin 3.3 g/dl (3.5-5.0) Coagulation Test 02/22/18 05:47 Prothrombin Time 16.3 seconds Prothromb Time International Ratio 1.30 Vital Signs Date Time Temp Pulse Resp B/P (MAP) Pulse Ox O2 Delivery O2 Flow Rate FiO2 02/22/18 04:58 98.3 86 16 139/78 (98) 93 Room Air Muscle Strength and Tone: WNL Gait and Station: Unsteady [facility] Medications Reviewed: Side Effects, Benefits of Medication, Risks Allergies Reviewed: Yes Mental Status Exam General Appearance: Casual, Good Eye Contact, Cooperative, Polite, Good Interaction; No Tearful; Psychomotor Retardation; No Bizarre Mannerisms, No Tics Speech: Clear, Spontaneous, Normal Rate, Normal Volume (low), Normal Tone; No Rambling, No Inappropriate Mood: Dysthmic/Depressed (voicing dispair over current physical condition. ) Affect: Calm, Sad, Neutral Thought Process: Organized, Goal Directed; No Loose Associations, No Flight of Ideas Thought Content: Suicidal Ideation (ongoing, multiple stressors); No Homicidal Ideation, No Delusions, No Auditory Halllucinations, No Visual Hallucinations, No Thought Broadcasting, No Ideas of Reference, No Obsessions, No Compulsions Cognition: Alert & Oriented-Person, Alert & Oriented-Place, Alert & Oriented- Time; No Ehmdj-Pzfjmrcv-Vyjdujoux Memory: Immediate, Recent, Remote Intelligence: Average Insight Judgment: Poor (limited) Result Diagram: 02/22/18 0547 02/22/18 0547 [facility] Assessment and Plan Zikn-zk-Gnuu Encounter Date: Feb 22, 2018 Zsav-ry-Pzyv Encounter Time: 10:00 [facility] Plan: Necessary Precautions, Individual/Group Therapy, Admin/Titrate Meds, Educate Patient Tobacco Medications: Not Appropriate Condition Multpiple Antipsychotics Used: No Problems: (1) Persistent depressive disorder Optional Permanent Comment: patient likely meeting criteria for major depression., but reports in logical manner why he would want to end his life. 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 Last Edited By: Ag Lux on Feb 21, 2018 12:10 Status: Chronic Condition 1. continue treatment. 2. continue medications, no changes. AG LUX MD Feb 22, 2018 10:24
--- NOTE | 2018-02-22 11:29 | RADIOLOGY IMAGING REPORT ---
FACILITY: [facility] [place] PATIENT NAME: Gary Puente : 1930 MR: [id number] V: [id number] EXAM DATE: ORDERING PHYSICIAN: AG LUX TECHNOLOGIST: Location: [facility] Patient: Gary Puente : 1930 Visit/Account:[id number] Date of Sevice: 02/22/2018 EXAMINATION: CT Head without intravenous contrast HISTORY: Head injury. TECHNIQUE: Axial images were obtained from the skull base to the vertex without intravenous contrast . Sagittal and coronal reformatted images are also submitted. One of the following dose optimization techniques was utilized in the performance of this exam: Autom ated exposure control; adjustment of the mA and/or kV according to the patient's size; or use of an i terative reconstruction technique. Specific details can be referenced in the facility's radiology C T exam operational policy. COMPARISON: Noncontrast head CT dated 02/18/2018. FINDINGS: Brain volume: Mild generalized volume loss. Ventricles: Negative. Acute ischemic changes: None. Hemorrhage: None. Masses / edema: None. Perkins-white: Stable multifocal encephalomalacia/gliosis involving the right lateral frontal lobe, righ t anterior superior temporal lobe, right lateral occipital lobe, and right parietal lobe. White matter: Stable mild to moderate chronic microvascular ischemic changes. Vessels: Negative. Extra-axial: Negative. 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 Visualized sinuses / orbits: Negative. IMPRESSION: 1. No acute intracranial abnormality. 2. Stable chronic findings. Report Dictated By: Fausto Lynch MD at 02/22/2018 11:18 AM Report E-Signed By: Fausto Lynch MD at 02/22/2018 11:24 AM [id number]
--- NOTE | 2018-02-22 13:48 | EKG ---
FACILITY: [facility] [place] PATIENT NAME: GENEVIEVE CLINE : [id number] MR: [id number] V: [id number] EXAM DATE: ORDERING PHYSICIAN: AG LUX TECHNOLOGIST: JOSEPH Test Reason : Blood Pressure : / mmHG Vent. Rate : 081 BPM Atrial Rate : 081 BPM P-R Int : 146 ms QRS Dur : 156 ms QT Int : 460 ms P-R-T Axes : 063 049 237 degrees QTc Int : 534 ms Normal sinus rhythm Left bundle branch block Abnormal ECG Unchanged from previous Confirmed by KEDAR SMITH ([id number] on 02/22/2018 6:25:44 PM Referred By: MACI Confirmed By:KEDAR SMITH
[2018-02-22] MEDS: POTASSIUM CHL 20 MEQ TABCR PO SCH (13:58)
[2018-02-22 14:00] VITALS: BP 114/72
[2018-02-22] MEDS ORDERED: INFLUENZA VIRUS VAC 0.5ML SYR IM ONLY ONE (14:55)
[2018-02-22 18:00] VITALS: BP 160/88
[2018-02-23] MEDS: VENLAFAXINE XR 75 MG CAPCR PO SCH (08:04)
[2018-02-23] MEDS: [UNRECOGNIZED DRUG - OTHER] PO SCH ×2 (08:05→19:35)
[2018-02-23] MEDS: POTASSIUM CHL 20 MEQ TABCR PO SCH (08:05)
[2018-02-23] MEDS: MULTIVITAMINS PO SCH (08:05)
[2018-02-23] MEDS: MIDODRINE 2.5 MG TAB PO SCH ×3 (08:05→19:36)
[2018-02-23 08:30] VITALS: BP 152/82
--- NOTE | 2018-02-23 12:21 | BHS Progress Note ---
[facility] - Subjective Progress Notes Subjective Patient has today been thus far refused from admission to [facility], presumably based on suicidal thoughts. Patient should not return home at this time, based on care needs for physical limitations but also based on obvious incompatibility concerning current relationship with . Will continue to evaluate, Blood pressure more elevated today, had a fall yesterday CT unremarkable, will continue current dose of Effexor today, and continue to look into manager long term care care options. Patient states he is no longer having any thoughts or intentions of self harm, and would like to obtain further follow up through penitentiary care facility. Suicidal Ideation: None Homicidal Ideation: None [facility] - Objective Physical Exam Vital Signs Vital Signs Date Time Temp Pulse Resp B/P (MAP) Pulse Ox O2 Delivery O2 Flow Rate FiO2 02/23/18 08:30 98.7 80 24 152/82 (105) 91 Room Air Muscle Strength and Tone: WNL Gait and Station: Unsteady [facility] Medications Reviewed: Side Effects, Benefits of Medication, Risks Allergies Reviewed: Yes Mental Status Exam General Appearance: Casual, Good Eye Contact, Cooperative, Polite, Good Interaction; No Tearful; Psychomotor Retardation; No Bizarre Mannerisms, No Tics Speech: Clear, Spontaneous, Normal Rate, Normal Volume (low), Normal Tone; No Rambling, No Inappropriate Mood: Dysthmic/Depressed (concerning relationship with , and physical limitations) Affect: Calm, Sad, Neutral Thought Process: Organized, Goal Directed; No Loose Associations, No Flight of Ideas Thought Content: Suicidal Ideation (denies today); No Homicidal Ideation, No Delusions, No Auditory Halllucinations, No Visual Hallucinations, No Thought Broadcasting, No Ideas of Reference, No Obsessions, No Compulsions Cognition: Alert & Oriented-Person, Alert & Oriented-Place, Alert & Oriented- Time (partially), Qczee-Aoczfqnj-Ifhxlwkma (mostly) Memory: Immediate (some mild confusion), Recent, Remote Intelligence: Average Insight Judgment: Poor (limited due to some degree of ongoing confusion, ) Result Diagram: 02/22/18 0547 02/22/18 0547 [facility] Assessment and Plan Fsjc-wh-Hcjl Encounter Date: Feb 23, 2018 Dggl-hg-Igpl Encounter Time: 10:00 [facility] Plan: Necessary Precautions, Individual/Group Therapy, Admin/Titrate Meds, Educate Patient Tobacco Medications: Not Appropriate Condition Multpiple Antipsychotics Used: No Problems: (1) Persistent depressive disorder Optional Permanent Comment: patient likely meeting criteria for major depression., but reports in a somewhat logical manner why he would want to end his life. 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 ongoing conflictual relationship with concerning Last Edited By: Ag Lux on Feb 23, 2018 12:18 Status: Chronic Condition 1. continue current dose of effexor 2. look into penitentiary care options. 3. telemetry AG LUX MD Feb 23, 2018 12:21
[2018-02-23 12:25] VITALS: BP 136/70
[2018-02-23] MEDS: WARFARIN SOD 2.5 MG TAB PO SCH (13:02)
--- NOTE | 2018-02-23 13:17 | EKG ---
FACILITY: [facility] PATIENT NAME: GENEVIEVE CLINE : [id number] MR: [id number] V: [id number] EXAM DATE: ORDERING PHYSICIAN: AG LUX TECHNOLOGIST: SANTIAGO Test Reason : PRIOR ABNORMAL EKG Blood Pressure : / mmHG Vent. Rate : 072 BPM Atrial Rate : 072 BPM P-R Int : 122 ms QRS Dur : 146 ms QT Int : 480 ms P-R-T Axes : 010 034 141 degrees QTc Int : 525 ms Normal sinus rhythm Left bundle branch block Abnormal ECG When compared with ECG of 22-FEB-2018 11:12, T wave inversion less evident in Inferior leads Confirmed by Sumit Underwood ([id number] on 02/23/2018 11:00:07 PM Referred By: MACI Confirmed By:Sumit Conley
[2018-02-23 17:10] VITALS: BP 178/94
[2018-02-23 19:00] VITALS: BP 152/70
[2018-02-24] VITALS (7 sets, daily range): BP systolic 148–171; BP diastolic 70–92
--- NOTE | 2018-02-24 08:35 | BHS Progress Note ---
S - Subjective Progress Notes Subjective "My overall mood is good. I do have some concerns about my ." Denies depression, last suicidal ideation "when I came in." Denies urge for harm to self or others Minor anxiety about relationship with Denies anger, sleep reported as sufficient Appetite low, sitting upright in bed and attempting breakfast Suicidal Ideation: None Homicidal Ideation: None S - Objective Physical Exam Vital Signs Vital Signs Date Time Temp Pulse Resp B/P (MAP) Pulse Ox O2 Delivery O2 Flow Rate FiO2 02/24/18 06:37 78 16 158/70 (99) 92 Room Air 02/24/18 00:25 98.0 Muscle Strength and Tone: WNL Gait and Station: Unsteady [facility] Medications Reviewed: Side Effects, Benefits of Medication, Risks Allergies Reviewed: Yes Mental Status Exam General Appearance: Casual, Good Eye Contact, Cooperative, Polite, Good Interaction; No Tearful; Psychomotor Retardation; No Bizarre Mannerisms, No Tics Speech: Clear, Spontaneous, Normal Rate, Normal Volume (low), Normal Tone; No Rambling, No Inappropriate Mood: Dysthmic/Depressed (concerning relationship with , and physical limitations) Affect: Full and Appropriate, Calm; No Sad; Neutral Thought Process: Organized, Goal Directed; No Loose Associations, No Flight of Ideas Thought Content: Suicidal Ideation (denies today); No Homicidal Ideation, No Delusions, No Auditory Halllucinations, No Visual Hallucinations, No Thought Broadcasting, No Ideas of Reference, No Obsessions, No Compulsions Cognition: Alert & Oriented-Person, Alert & Oriented-Place, Alert & Oriented- Time (partially), Optlq-Ekaykljh-Svnurmkge (mostly) Memory: Immediate (some mild confusion), Recent, Remote Intelligence: Average Insight Judgment: Poor (limited due to some degree of ongoing confusion, ) Result Diagram: 02/22/18 0547 02/22/18 0547 Imaging Allergies Coded Allergies No Known Drug Allergies ([id number]/12/18) Additional Findings/Notes: Medications (Trade) Dose Ordered Sig/Jack Route PRN Reason Start Time Stop Time Status Last Admin Dose Admin Fludrocortisone Acetate (Florinef 0.1 Mg Tab (Or Equiv)) 0.1 mg BID@0900,1900 PO 02/21/18 19:00 03/23/18 18:59 02/23/18 19:35 Influenza Virus Vaccine Quadrival (Flu Vac ([id number] Formula)) 0.5 ml ONCE ONCE IM ONLY 02/22/18 14:55 02/22/18 14:56 DC 02/22/18 15:21 Midodrine (Pro-Amatine 2.5 Mg Tab (Or Equiv)) 10 mg TID@0900,1400,1900 PO 02/21/18 14:00 03/23/18 13:59 02/23/18 19:36 Multivitamins (Thera-M Enhanced Tab (Or Equiv)) 1 each QDAY PO 02/20/18 09:00 03/22/18 08:59 02/23/18 08:05 Potassium Chloride (Klor-Con M20 (*) 20 Meq Tabcr (Or Equiv)) 20 meq QDAY PO 02/22/18 13:05 03/24/18 13:04 02/23/18 08:05 Sertraline HCl (Zoloft 50 Mg Tab (Or Equiv)) 25 mg QDAY PO 02/20/18 09:00 02/21/18 06:35 DC 02/20/18 08:38 Venlafaxine HCl (Effexor-Xr 37.5 Mg Capcr (Or Equiv)) 37.5 mg ONCE ONCE PO 02/21/18 09:30 02/21/18 09:41 DC 02/21/18 09:57 Venlafaxine HCl (Effexor-Xr 75 Mg Capcr (Or Equiv)) 75 mg QDAY PO 02/22/18 09:00 03/24/18 08:59 02/23/18 08:04 Warfarin Sodium (Coumadin 2.5 Mg Tab (Or Equiv)) 2.5 mg ONCE ONCE PO 02/20/18 13:45 02/20/18 13:46 DC 02/20/18 13:59 [facility] Assessment and Plan Ykyn-kb-Reos Encounter Date: Feb 24, 2018 Xylu-ht-Dkja Encounter Time: 08:32 [facility] Plan: Necessary Precautions, Individual/Group Therapy, Admin/Titrate Meds, Educate Patient Tobacco Medications: Not Appropriate Condition Multpiple Antipsychotics Used: No Problems: (1) Persistent depressive disorder Optional Permanent Comment: patient likely meeting criteria for major depression., but reports in a somewhat logical manner why he would want to end his life. 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 ongoing conflictual relationship with concerning Last Edited By: Viraj Milan on Feb 23, 2018 12:18 Status: Chronic (2) Ruffin's disease Status: Chronic (3) Suicidal intent Status: Resolved Condition Maintain precautions Monitor vital signs Ongoing discharge planning, seeking appropriate discharge facility MAULIK ROBINS NP Feb 24, 2018 08:35
[2018-02-24] MEDS: POTASSIUM CHL 20 MEQ TABCR PO SCH (08:57)
[2018-02-24] MEDS: MIDODRINE 2.5 MG TAB PO SCH ×3 (08:57→19:12)
[2018-02-24] MEDS: [UNRECOGNIZED DRUG - OTHER] PO SCH ×2 (08:57→19:12)
[2018-02-24] MEDS: VENLAFAXINE XR 75 MG CAPCR PO SCH (08:59)
[2018-02-24] MEDS: MULTIVITAMINS PO SCH (08:59)
[2018-02-24 12:21] LABS: PLATELET COUNT, AUTOMATED 188 K/uL (150-450)
--- NOTE | 2018-02-24 12:45 | EKG ---
FACILITY: [facility] - [place] PATIENT NAME: GENEVIEVE CLINE : [id number] MR: [id number] V: [id number] EXAM DATE: ORDERING PHYSICIAN: MAULIK ROBINS TECHNOLOGIST: SANTIAGO Test Reason : PROLONGED QTC Blood Pressure : / mmHG Vent. Rate : 066 BPM Atrial Rate : 066 BPM P-R Int : 154 ms QRS Dur : 150 ms QT Int : 498 ms P-R-T Axes : 058 044 099 degrees QTc Int : 522 ms Sinu srhythm Left bundle branch block Abnormal ECG When compared with ECG of 23-FEB-2018 13:09, No significant change was found Confirmed by KIKE OHARA ([id number]) on 02/25/2018 5:50:38 AM Referred By: JULIENNE Confirmed By:KIKE OHARA
[2018-02-25 06:16] VITALS: BP 163/80
[2018-02-25 08:45] VITALS: BP 108/58
--- NOTE | 2018-02-25 08:49 | BHS Progress Note ---
[facility] - Subjective Progress Notes Subjective "My has established a emt intermediate care regime. I might have a little anxiety about it." Denies depression or thoughts of harming self Oriented to person, partial date, partial place Reports sleep sufficient, appetite fair Ambulating w/staff assist/walker Suicidal Ideation: None Homicidal Ideation: None [facility] - Objective Physical Exam Vital Signs Vital Signs Date Time Temp Pulse Resp B/P (MAP) Pulse Ox O2 Delivery O2 Flow Rate FiO2 02/25/18 06:16 98.1 66 163/80 (107) 94 Room Air 02/24/18 18:30 20 Muscle Strength and Tone: WNL Gait and Station: Unsteady [facility] Medications Reviewed: Side Effects, Benefits of Medication, Risks Allergies Reviewed: Yes Mental Status Exam General Appearance: Casual, Good Eye Contact, Cooperative, Polite, Good Interaction; No Tearful; Psychomotor Retardation; No Bizarre Mannerisms, No Tics Speech: Clear, Spontaneous, Normal Rate, Normal Volume (low), Normal Tone; No Rambling, No Inappropriate Mood: Dysthmic/Depressed (concerning relationship with , and physical limitations) Affect: Full and Appropriate, Calm; No Sad; Neutral Thought Process: Organized, Goal Directed; No Loose Associations, No Flight of Ideas Thought Content: Suicidal Ideation (denies today); No Homicidal Ideation, No Delusions, No Auditory Halllucinations, No Visual Hallucinations, No Thought Broadcasting, No Ideas of Reference, No Obsessions, No Compulsions Cognition: Alert & Oriented-Person, Alert & Oriented-Place, Alert & Oriented- Time (partially), Kmwat-Uwzcpnkk-Srjllskwo (mostly) Memory: Immediate (some mild confusion), Recent, Remote Intelligence: Average Insight Judgment: Poor (limited due to some degree of ongoing confusion, ) Result Diagram: 02/24/18 1212 02/24/18 1212 [facility] Medications (Trade) Dose Ordered Sig/Jack Route PRN Reason Start Time Stop Time Status Last Admin Dose Admin Fludrocortisone Acetate (Florinef 0.1 Mg Tab (Or Equiv)) 0.1 mg BID@0900,1900 PO 02/21/18 19:00 03/23/18 18:59 02/24/18 19:12 Influenza Virus Vaccine Quadrival (Flu Vac ([id number] Formula)) 0.5 ml ONCE ONCE IM ONLY 02/22/18 14:55 02/22/18 14:56 DC 02/22/18 15:21 Midodrine (Pro-Amatine 2.5 Mg Tab (Or Equiv)) 5 mg TID@0900,1400,1900 PO 02/24/18 14:00 03/26/18 13:59 02/24/18 19:12 Multivitamins (Thera-M Enhanced Tab (Or Equiv)) 1 each QDAY PO 02/20/18 09:00 03/22/18 08:59 02/24/18 08:59 Potassium Chloride (Klor-Con M20 (*) 20 Meq Tabcr (Or Equiv)) 20 meq QDAY PO 02/22/18 13:05 03/24/18 13:04 02/24/18 08:57 Sertraline HCl (Zoloft 50 Mg Tab (Or Equiv)) 25 mg QDAY PO 02/20/18 09:00 02/21/18 06:35 DC 02/20/18 08:38 Venlafaxine HCl (Effexor-Xr 37.5 Mg Capcr (Or Equiv)) 37.5 mg ONCE ONCE PO 02/21/18 09:30 02/21/18 09:41 DC 02/21/18 09:57 Venlafaxine HCl (Effexor-Xr 75 Mg Capcr (Or Equiv)) 75 mg QDAY PO 02/22/18 09:00 03/24/18 08:59 02/24/18 08:59 Warfarin Sodium (Coumadin 2.5 Mg Tab (Or Equiv)) 2.5 mg ONCE ONCE PO 02/20/18 13:45 02/20/18 13:46 DC 02/20/18 13:59 [facility] Assessment and Plan Qgnl-mz-Wqog Encounter Date: Feb 25, 2018 Zewv-nv-Hbgt Encounter Time: 08:46 [facility] Plan: Necessary Precautions, Individual/Group Therapy, Admin/Titrate Meds, Educate Patient Tobacco Medications: Not Appropriate Condition Multpiple Antipsychotics Used: No Problems: (1) Persistent depressive disorder Optional Permanent Comment: patient likely meeting criteria for major depression., but reports in a somewhat logical manner why he would want to end his life. 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 ongoing conflictual relationship with concerning Last Edited By: Viraj Milan on Feb 23, 2018 12:18 Status: Chronic (2) [place]'s disease Status: Chronic (3) Suicidal intent Status: Resolved Condition Continue close monitoring, continue fall precautions Monitor VS Continue current medications and treatment Ongoing discharge planning, seeking appropriate emt intermediate care facility MAULIK ROBINS NP Feb 25, 2018 08:49
[2018-02-25] MEDS: MULTIVITAMINS PO SCH (09:00)
[2018-02-25] MEDS: [UNRECOGNIZED DRUG - OTHER] PO SCH ×2 (09:00→19:10)
[2018-02-25] MEDS: VENLAFAXINE XR 75 MG CAPCR PO SCH (09:00)
[2018-02-25] MEDS: MIDODRINE 2.5 MG TAB PO SCH ×3 (09:00→19:10)
[2018-02-25] MEDS: POTASSIUM CHL 20 MEQ TABCR PO SCH (09:00)
[2018-02-25 10:40] VITALS: BP 128/68
[2018-02-25 12:42] VITALS: BP 122/62
[2018-02-25] MEDS: WARFARIN SOD 2.5 MG TAB PO SCH (13:24)
[2018-02-25 17:46] VITALS: BP 158/78
[2018-02-26 03:30] VITALS: BP 152/86
[2018-02-26] MEDS: [UNRECOGNIZED DRUG - OTHER] PO SCH ×2 (09:47→19:08)
[2018-02-26] MEDS: MULTIVITAMINS PO SCH (09:47)
[2018-02-26] MEDS: MIDODRINE 2.5 MG TAB PO SCH ×3 (09:47→19:09)
[2018-02-26] MEDS: VENLAFAXINE XR 75 MG CAPCR PO SCH (09:47)
[2018-02-26] MEDS: POTASSIUM CHL 20 MEQ TABCR PO SCH (09:47)
[2018-02-26 09:49] VITALS: BP 138/82
--- NOTE | 2018-02-26 10:17 | BHS Progress Note ---
BHS - Subjective Progress Notes Subjective Patient reports he understands he would benefit from continued rehab in a residential at this time. Patient reports his mood as a 5 out of 10 today. Patient is sleeping well with reasonable good appetite. No other concerns today, will look into [facility] today. No other concerns. Suicidal Ideation: None Homicidal Ideation: None BHS - Objective Physical Exam Vital Signs Vital Signs Date Time Temp Pulse Resp B/P (MAP) Pulse Ox O2 Delivery O2 Flow Rate FiO2 02/26/18 03:30 98.7 87 15 152/86 (108) 93 Room Air Hematology Test 02/20/18 06:03 02/22/18 05:47 02/23/18 18:20 02/24/18 12:05 Vitamin B12 Level 550 pg/mL (180-914) Vitamin D 1,25-Dihydroxy 53.0 pg/mL (19.9-79.3) Folate 16.1 ng/mL (>=5.9) Free Thyroxine 1.40 ng/dl (0.78-2.19) Free Triiodothyronine 2.6 pg/mL (2.4-4.2) Prothrombin Time 16.3 seconds (12.0-14.4) Prothromb Time International Ratio 1.30 Troponin I < 0.012 ng/ml Urine Color Yellow Urine Clarity Slightly-cloudy Urine pH 7.0 pH (4.8-9.5) Urine Specific Orange 1.011 Urine Protein Negative mg/dL (NEGATIVE) Urine Glucose (UA) Negative mg/dL (NEGATIVE) Urine Ketones Negative mg/dL (NEGATIVE) Urine Blood Negative (NEGATIVE) Urine Nitrite Negative (NEGATIVE) Urine Bilirubin Negative (NEGATIVE) Urine Urobilinogen Negative mg/dL (0.2-1.9) Urine Leukocyte Esterase Negative (NEGATIVE) Urine RBC None /HPF (0-2/HPF) Urine WBC 1 /HPF (0-5/HPF) Urine Squamous Epithelial Cells None /LPF (</=FEW) Urine Amorphous Crystals Few /HPF Urine Bacteria Negative /HPF (NONE-FEW) Urine Hyaline Casts Few /LPF (NONE-FEW) Urine Mucus Few /HPF (NONE-FEW) Test 02/24/18 12:12 Red Blood Count 4.98 M/uL (4.00-5.60) Mean Corpuscular Volume 93.8 fL (80.0-96.0) Mean Corpuscular Hemoglobin 31.7 pg (26.0-33.0) Mean Corpuscular Hemoglobin Concent 33.8 g/dL (32.0-36.0) Red Cell Distribution Width 13.5 % (11.5-14.5) Mean Platelet Volume 8.0 fL (7.2-11.1) Neutrophils (%) (Auto) 61.0 % (39.4-72.5) Lymphocytes (%) (Auto) 29.6 % (17.6-49.6) Monocytes (%) (Auto) 7.9 % (4.1-12.4) Eosinophils (%) (Auto) 0.8 % (0.4-6.7) Basophils (%) (Auto) 0.7 % (0.3-1.4) Nucleated RBC Relative Count (auto) 0.1 /100WBC Neutrophils # (Auto) 3.5 K/uL (2.0-7.4) Lymphocytes # (Auto) 1.7 K/uL (1.3-3.6) Monocytes # (Auto) 0.5 K/uL (0.3-1.0) Eosinophils # (Auto) 0.0 K/uL (0.0-0.5) Basophils # (Auto) 0.0 K/uL (0.0-0.1) Nucleated RBC Absolute Count (auto) 0.00 K/uL Sodium Level 141 mmol/L (137-145) Potassium Level 3.5 mmol/L (3.5-5.0) Chloride Level 103 mmol/L (98-107) Carbon Dioxide Level 27 mmol/L (22-30) Blood Urea Nitrogen 15 mg/dl (9-21) Creatinine 0.90 mg/dl (0.66-1.25) Glomerular Filtration Rate Calc > 60.0 Random Glucose 97 mg/dl (75-110) Calcium Level 10.0 mg/dl (8.4-10.2) Total Bilirubin 0.9 mg/dl (0.2-1.3) Aspartate Amino Transf (AST/SGOT) 27 U/L (0-35) Alanine Aminotransferase (ALT/SGPT) 39 U/L (0-56) Alkaline Phosphatase 99 U/L (0-126) Total Protein 7.2 g/dl (6.3-8.2) Albumin 4.3 g/dl (3.5-5.0) Chemistry Test 02/20/18 06:03 02/22/18 05:47 02/23/18 18:20 02/24/18 12:05 Vitamin B12 Level 550 pg/mL (180-914) Vitamin D 1,25-Dihydroxy 53.0 pg/mL (19.9-79.3) Folate 16.1 ng/mL (>=5.9) Free Thyroxine 1.40 ng/dl (0.78-2.19) Free Triiodothyronine 2.6 pg/mL (2.4-4.2) Prothrombin Time 16.3 seconds (12.0-14.4) Prothromb Time International Ratio 1.30 Troponin I < 0.012 ng/ml Urine Color Yellow Urine Clarity Slightly-cloudy Urine pH 7.0 pH (4.8-9.5) Urine Specific Orange 1.011 Urine Protein Negative mg/dL (NEGATIVE) Urine Glucose (UA) Negative mg/dL (NEGATIVE) Urine Ketones Negative mg/dL (NEGATIVE) Urine Blood Negative (NEGATIVE) Urine Nitrite Negative (NEGATIVE) Urine Bilirubin Negative (NEGATIVE) Urine Urobilinogen Negative mg/dL (0.2-1.9) Urine Leukocyte Esterase Negative (NEGATIVE) Urine RBC None /HPF (0-2/HPF) Urine WBC 1 /HPF (0-5/HPF) Urine Squamous Epithelial Cells None /LPF (</=FEW) Urine Amorphous Crystals Few /HPF Urine Bacteria Negative /HPF (NONE-FEW) Urine Hyaline Casts Few /LPF (NONE-FEW) Urine Mucus Few /HPF (NONE-FEW) Test 02/24/18 12:12 White Blood Count 5.8 k/uL (4.5-11.0) Red Blood Count 4.98 M/uL (4.00-5.60) Hemoglobin 15.8 g/dL (14.0-18.0) Hematocrit 46.8 % (42.0-52.0) Mean Corpuscular Volume 93.8 fL (80.0-96.0) Mean Corpuscular Hemoglobin 31.7 pg (26.0-33.0) Mean Corpuscular Hemoglobin Concent 33.8 g/dL (32.0-36.0) Red Cell Distribution Width 13.5 % (11.5-14.5) Platelet Count 188 K/uL (150-450) Mean Platelet Volume 8.0 fL (7.2-11.1) Neutrophils (%) (Auto) 61.0 % (39.4-72.5) Lymphocytes (%) (Auto) 29.6 % (17.6-49.6) Monocytes (%) (Auto) 7.9 % (4.1-12.4) Eosinophils (%) (Auto) 0.8 % (0.4-6.7) Basophils (%) (Auto) 0.7 % (0.3-1.4) Nucleated RBC Relative Count (auto) 0.1 /100WBC Neutrophils # (Auto) 3.5 K/uL (2.0-7.4) Lymphocytes # (Auto) 1.7 K/uL (1.3-3.6) Monocytes # (Auto) 0.5 K/uL (0.3-1.0) Eosinophils # (Auto) 0.0 K/uL (0.0-0.5) Basophils # (Auto) 0.0 K/uL (0.0-0.1) Nucleated RBC Absolute Count (auto) 0.00 K/uL Glomerular Filtration Rate Calc > 60.0 Calcium Level 10.0 mg/dl (8.4-10.2) Total Bilirubin 0.9 mg/dl (0.2-1.3) Aspartate Amino Transf (AST/SGOT) 27 U/L (0-35) Alanine Aminotransferase (ALT/SGPT) 39 U/L (0-56) Alkaline Phosphatase 99 U/L (0-126) Total Protein 7.2 g/dl (6.3-8.2) Albumin 4.3 g/dl (3.5-5.0) Coagulation Test 02/22/18 05:47 Prothrombin Time 16.3 seconds Prothromb Time International Ratio 1.30 Urinalysis Test 02/24/18 12:05 Urine Color Yellow Urine Clarity Slightly-cloudy Urine pH 7.0 pH (4.8-9.5) Urine Specific Orange 1.011 Urine Protein Negative mg/dL (NEGATIVE) Urine Glucose (UA) Negative mg/dL (NEGATIVE) Urine Ketones Negative mg/dL (NEGATIVE) Urine Blood Negative (NEGATIVE) Urine Nitrite Negative (NEGATIVE) Urine Bilirubin Negative (NEGATIVE) Urine Urobilinogen Negative mg/dL (0.2-1.9) Urine Leukocyte Esterase Negative (NEGATIVE) Urine RBC None /HPF (0-2/HPF) Urine WBC 1 /HPF (0-5/HPF) Urine Squamous Epithelial Cells None /LPF (</=FEW) Urine Amorphous Crystals Few /HPF Urine Bacteria Negative /HPF (NONE-FEW) Urine Hyaline Casts Few /LPF (NONE-FEW) Urine Mucus Few /HPF (NONE-FEW) Muscle Strength and Tone: WNL Gait and Station: Unsteady [facility] Medications Reviewed: Side Effects, Benefits of Medication, Risks Allergies Reviewed: Yes Mental Status Exam General Appearance: Casual, Good Eye Contact, Cooperative, Polite, Good Interaction; No Tearful; Psychomotor Retardation; No Bizarre Mannerisms, No Tics Speech: Clear, Spontaneous, Normal Rate, Normal Volume (low), Normal Tone; No Rambling, No Inappropriate Mood: Dysthmic/Depressed (concerning relationship with , and physical limitations) Affect: Full and Appropriate, Calm; No Sad; Neutral Thought Process: Organized, Logical, Goal Directed; No Loose Associations, No Flight of Ideas Thought Content: Suicidal Ideation (denies today); No Homicidal Ideation, No Delusions, No Auditory Halllucinations, No Visual Hallucinations, No Thought Broadcasting, No Ideas of Reference, No Obsessions, No Compulsions Cognition: Alert & Oriented-Person, Alert & Oriented-Place, Alert & Oriented- Time (partially), Combb-Kanxmkjw-Bdtmadgzr (mostly) Memory: Immediate (some mild confusion), Recent, Remote Intelligence: Average Insight Judgment: Poor (limited due to some degree of ongoing confusion, ) Result Diagram: 02/24/18 1212 02/24/18 1212 [facility] Assessment and Plan [id number] Encounter Date: Feb 26, 2018 [id number] Encounter Time: 10:00 [facility] Plan: Necessary Precautions, Individual/Group Therapy, Admin/Titrate Meds, Educate Patient Tobacco Medications: Not Appropriate Condition Multpiple Antipsychotics Used: No Problems: (1) Persistent depressive disorder Optional Permanent Comment: patient likely meeting criteria for major depression., but reports in a somewhat logical manner why he would want to end his life. 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 ongoing conflictual relationship with concerning Last Edited By: Ag Lux on Feb 23, 2018 12:18 Status: Chronic Condition 1. continue treatment. 2. explore residential options. AG LUX MD Feb 26, 2018 10:17
[2018-02-26 19:32] VITALS: BP 124/67
[2018-02-27 03:13] VITALS: BP 155/83
[2018-02-27 07:45] VITALS: BP 128/72
[2018-02-27] MEDS: VENLAFAXINE XR 75 MG CAPCR PO SCH (08:00)
[2018-02-27] MEDS: POTASSIUM CHL 20 MEQ TABCR PO SCH (08:00)
[2018-02-27] MEDS: MULTIVITAMINS PO SCH (08:00)
[2018-02-27] MEDS: [UNRECOGNIZED DRUG - OTHER] PO SCH ×2 (08:00→19:00)
[2018-02-27] MEDS: MIDODRINE 2.5 MG TAB PO SCH ×3 (08:00→19:01)
--- NOTE | 2018-02-27 11:49 | BHS Progress Note ---
[facility] - Subjective Progress Notes Subjective Patient notably playing a joke on staff last evening. Sleep intact, some minimal improvement concerning appetite. [facility] accepting [facility] to [facility] to [facility]. Patient's cooperative on unit, and is arranging financing for entrance into [facility]. Will continue treatment, no me dication changes. Suicidal Ideation: None Homicidal Ideation: None [facility] - Objective Physical Exam Vital Signs Vital Signs Date Time Temp Pulse Resp B/P (MAP) Pulse Ox O2 Delivery O2 Flow Rate FiO2 02/27/18 07:45 99.2 72 128/72 (90) 92 Room Air 02/27/18 03:13 15 Muscle Strength and Tone: WNL Gait and Station: Unsteady [facility] Medications Reviewed: Side Effects, Benefits of Medication, Risks Allergies Reviewed: Yes Mental Status Exam General Appearance: Casual, Good Eye Contact, Cooperative, Polite, Good Interaction; No Tearful; Psychomotor Retardation; No Bizarre Mannerisms, No Tics Speech: Clear, Spontaneous, Normal Rate, Normal Volume (low), Normal Tone; No Rambling, No Inappropriate Mood: Dysthmic/Depressed (concerning relationship with , and physical limitations) Affect: Full and Appropriate, Calm; No Sad; Neutral Thought Process: Organized, Logical, Goal Directed; No Loose Associations, No Flight of Ideas Thought Content: Suicidal Ideation (denies today); No Homicidal Ideation, No Delusions, No Auditory Halllucinations, No Visual Hallucinations, No Thought Broadcasting, No Ideas of Reference, No Obsessions, No Compulsions Cognition: Alert & Oriented-Person, Alert & Oriented-Place, Alert & Oriented- Time (partially), Tvczq-Azukvpfg-Nyeorgiff (mostly) Memory: Immediate (some mild confusion), Recent, Remote Intelligence: Average Insight Judgment: Poor (limited due to some degree of ongoing confusion, ) Result Diagram: 02/24/18 1212 02/24/18 1212 [facility] Assessment and Plan [id number] Encounter Date: Feb 27, 2018 [id number] Encounter Time: 11:30 [facility] Plan: Necessary Precautions, Individual/Group Therapy, Admin/Titrate Meds, Educate Patient Tobacco Medications: Not Appropriate Condition Multpiple Antipsychotics Used: No Problems: (1) Persistent depressive disorder Optional Permanent Comment: patient likely meeting criteria for major depression., but reports in a somewhat logical manner why he would want to end his life. 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 ongoing conflictual relationship with concerning Last Edited By: Ag Lux on Feb 23, 2018 12:18 Status: Chronic Condition 1. solidify plans to enter [facility]. 2. continue treatment. AG LUX MD Feb 27, 2018 11:49
[2018-02-27] MEDS: WARFARIN SOD 2.5 MG TAB PO SCH (13:05)
[2018-02-27 13:15] VITALS: BP 112/58
[2018-02-27 21:53] VITALS: BP 153/77
[2018-02-28 03:31] VITALS: BP 147/81
[2018-02-28 06:14] LABS: PLATELET COUNT, AUTOMATED 165 K/uL (150-450)
[2018-02-28 06:15] LABS: INR 1.15
[2018-02-28] MEDS: VENLAFAXINE XR 75 MG CAPCR PO SCH (08:19)
[2018-02-28] MEDS: MIDODRINE 2.5 MG TAB PO SCH ×3 (08:19→19:00)
[2018-02-28] MEDS: [UNRECOGNIZED DRUG - OTHER] PO SCH ×2 (08:19→19:00)
[2018-02-28] MEDS: POTASSIUM CHL 20 MEQ TABCR PO SCH (08:19)
[2018-02-28] MEDS: MULTIVITAMINS PO SCH (08:19)
[2018-02-28 09:53] VITALS: BP 132/78
--- NOTE | 2018-02-28 11:35 | BHS Progress Note ---
BHS - Subjective Progress Notes Subjective Patient remains cooperative on the unit, and reporting that his mood is "pretty good" today. Patient's appetite improving, sleep intact. Will continue to work on solidifying placement in [facility], for acute weakness, and rehab. No other concerns today, will continue current medications. Suicidal Ideation: None Homicidal Ideation: None S - Objective Physical Exam Vital Signs Hematology Test 02/20/18 06:03 02/23/18 18:20 02/24/18 12:05 02/28/18 06:03 Vitamin B12 Level 550 pg/mL (180-914) Vitamin D 1,25-Dihydroxy 53.0 pg/mL (19.9-79.3) Folate 16.1 ng/mL (>=5.9) Free Thyroxine 1.40 ng/dl (0.78-2.19) Free Triiodothyronine 2.6 pg/mL (2.4-4.2) Troponin I < 0.012 ng/ml Urine Color Yellow Urine Clarity Slightly-cloudy Urine pH 7.0 pH (4.8-9.5) Urine Specific [place] 1.011 Urine Protein Negative mg/dL (NEGATIVE) Urine Glucose (UA) Negative mg/dL (NEGATIVE) Urine Ketones Negative mg/dL (NEGATIVE) Urine Blood Negative (NEGATIVE) Urine Nitrite Negative (NEGATIVE) Urine Bilirubin Negative (NEGATIVE) Urine Urobilinogen Negative mg/dL (0.2-1.9) Urine Leukocyte Esterase Negative (NEGATIVE) Urine RBC None /HPF (0-2/HPF) Urine WBC 1 /HPF (0-5/HPF) Urine Squamous Epithelial Cells None /LPF (</=FEW) Urine Amorphous Crystals Few /HPF Urine Bacteria Negative /HPF (NONE-FEW) Urine Hyaline Casts Few /LPF (NONE-FEW) Urine Mucus Few /HPF (NONE-FEW) Red Blood Count 4.20 M/uL (4.00-5.60) Mean Corpuscular Volume 92.6 fL (80.0-96.0) Mean Corpuscular Hemoglobin 32.2 pg (26.0-33.0) Mean Corpuscular Hemoglobin Concent 34.8 g/dL (32.0-36.0) Red Cell Distribution Width 13.2 % (11.5-14.5) Mean Platelet Volume 7.8 fL (7.2-11.1) Neutrophils (%) (Auto) 57.0 % (39.4-72.5) Lymphocytes (%) (Auto) 31.1 % (17.6-49.6) Monocytes (%) (Auto) 9.0 % (4.1-12.4) Eosinophils (%) (Auto) 2.5 % (0.4-6.7) Basophils (%) (Auto) 0.4 % (0.3-1.4) Nucleated RBC Relative Count (auto) 0.0 /100WBC Neutrophils # (Auto) 3.1 K/uL (2.0-7.4) Lymphocytes # (Auto) 1.7 K/uL (1.3-3.6) Monocytes # (Auto) 0.5 K/uL (0.3-1.0) Eosinophils # (Auto) 0.1 K/uL (0.0-0.5) Basophils # (Auto) 0.0 K/uL (0.0-0.1) Nucleated RBC Absolute Count (auto) 0.00 K/uL Prothrombin Time 14.7 seconds (12.0-14.4) Prothromb Time International Ratio 1.15 Sodium Level 140 mmol/L (137-145) Potassium Level 3.9 mmol/L (3.5-5.0) Chloride Level 107 mmol/L (98-107) Carbon Dioxide Level 26 mmol/L (22-30) Blood Urea Nitrogen 18 mg/dl (9-21) Creatinine 0.80 mg/dl (0.66-1.25) Glomerular Filtration Rate Calc > 60.0 Random Glucose 93 mg/dl (75-110) Calcium Level 9.4 mg/dl (8.4-10.2) Total Bilirubin 0.9 mg/dl (0.2-1.3) Aspartate Amino Transf (AST/SGOT) 23 U/L (0-35) Alanine Aminotransferase (ALT/SGPT) 41 U/L (0-56) Alkaline Phosphatase 94 U/L (0-126) Total Protein 5.9 g/dl (6.3-8.2) Albumin 3.3 g/dl (3.5-5.0) Chemistry Test 02/20/18 06:03 02/23/18 18:20 02/24/18 12:05 02/28/18 06:03 Vitamin B12 Level 550 pg/mL (180-914) Vitamin D 1,25-Dihydroxy 53.0 pg/mL (19.9-79.3) Folate 16.1 ng/mL (>=5.9) Free Thyroxine 1.40 ng/dl (0.78-2.19) Free Triiodothyronine 2.6 pg/mL (2.4-4.2) Troponin I < 0.012 ng/ml Urine Color Yellow Urine Clarity Slightly-cloudy Urine pH 7.0 pH (4.8-9.5) Urine Specific [place] 1.011 Urine Protein Negative mg/dL (NEGATIVE) Urine Glucose (UA) Negative mg/dL (NEGATIVE) Urine Ketones Negative mg/dL (NEGATIVE) Urine Blood Negative (NEGATIVE) Urine Nitrite Negative (NEGATIVE) Urine Bilirubin Negative (NEGATIVE) Urine Urobilinogen Negative mg/dL (0.2-1.9) Urine Leukocyte Esterase Negative (NEGATIVE) Urine RBC None /HPF (0-2/HPF) Urine WBC 1 /HPF (0-5/HPF) Urine Squamous Epithelial Cells None /LPF (</=FEW) Urine Amorphous Crystals Few /HPF Urine Bacteria Negative /HPF (NONE-FEW) Urine Hyaline Casts Few /LPF (NONE-FEW) Urine Mucus Few /HPF (NONE-FEW) White Blood Count 5.5 k/uL (4.5-11.0) Red Blood Count 4.20 M/uL (4.00-5.60) Hemoglobin 13.5 g/dL (14.0-18.0) Hematocrit 38.9 % (42.0-52.0) Mean Corpuscular Volume 92.6 fL (80.0-96.0) Mean Corpuscular Hemoglobin 32.2 pg (26.0-33.0) Mean Corpuscular Hemoglobin Concent 34.8 g/dL (32.0-36.0) Red Cell Distribution Width 13.2 % (11.5-14.5) Platelet Count 165 K/uL (150-450) Mean Platelet Volume 7.8 fL (7.2-11.1) Neutrophils (%) (Auto) 57.0 % (39.4-72.5) Lymphocytes (%) (Auto) 31.1 % (17.6-49.6) Monocytes (%) (Auto) 9.0 % (4.1-12.4) Eosinophils (%) (Auto) 2.5 % (0.4-6.7) Basophils (%) (Auto) 0.4 % (0.3-1.4) Nucleated RBC Relative Count (auto) 0.0 /100WBC Neutrophils # (Auto) 3.1 K/uL (2.0-7.4) Lymphocytes # (Auto) 1.7 K/uL (1.3-3.6) Monocytes # (Auto) 0.5 K/uL (0.3-1.0) Eosinophils # (Auto) 0.1 K/uL (0.0-0.5) Basophils # (Auto) 0.0 K/uL (0.0-0.1) Nucleated RBC Absolute Count (auto) 0.00 K/uL Prothrombin Time 14.7 seconds (12.0-14.4) Prothromb Time International Ratio 1.15 Glomerular Filtration Rate Calc > 60.0 Calcium Level 9.4 mg/dl (8.4-10.2) Total Bilirubin 0.9 mg/dl (0.2-1.3) Aspartate Amino Transf (AST/SGOT) 23 U/L (0-35) Alanine Aminotransferase (ALT/SGPT) 41 U/L (0-56) Alkaline Phosphatase 94 U/L (0-126) Total Protein 5.9 g/dl (6.3-8.2) Albumin 3.3 g/dl (3.5-5.0) Coagulation Test 02/28/18 06:03 Prothrombin Time 14.7 seconds Prothromb Time International Ratio 1.15 Urinalysis Test 02/24/18 12:05 Urine Color Yellow Urine Clarity Slightly-cloudy Urine pH 7.0 pH (4.8-9.5) Urine Specific [place] 1.011 Urine Protein Negative mg/dL (NEGATIVE) Urine Glucose (UA) Negative mg/dL (NEGATIVE) Urine Ketones Negative mg/dL (NEGATIVE) Urine Blood Negative (NEGATIVE) Urine Nitrite Negative (NEGATIVE) Urine Bilirubin Negative (NEGATIVE) Urine Urobilinogen Negative mg/dL (0.2-1.9) Urine Leukocyte Esterase Negative (NEGATIVE) Urine RBC None /HPF (0-2/HPF) Urine WBC 1 /HPF (0-5/HPF) Urine Squamous Epithelial Cells None /LPF (</=FEW) Urine Amorphous Crystals Few /HPF Urine Bacteria Negative /HPF (NONE-FEW) Urine Hyaline Casts Few /LPF (NONE-FEW) Urine Mucus Few /HPF (NONE-FEW) Vital Signs Date Time Temp Pulse Resp B/P (MAP) Pulse Ox O2 Delivery O2 Flow Rate FiO2 02/28/18 09:53 99.1 70 132/78 (96) 93 Room Air 02/28/18 03:31 15 Muscle Strength and Tone: WNL Gait and Station: Unsteady [facility] Medications Reviewed: Side Effects, Benefits of Medication, Risks Allergies Reviewed: Yes Mental Status Exam General Appearance: Casual, Good Eye Contact, Cooperative, Polite, Good Interaction; No Tearful; Psychomotor Retardation; No Bizarre Mannerisms, No Tics Speech: Clear, Spontaneous, Normal Rate, Normal Volume (low), Normal Tone; No Rambling, No Inappropriate Mood: Euthymic (states "good" mood today) Affect: Full and Appropriate, Calm; No Sad; Neutral Thought Process: Organized, Logical, Goal Directed; No Loose Associations, No Flight of Ideas Thought Content: No Suicidal Ideation, No Homicidal Ideation, No Delusions, No Auditory Halllucinations, No Visual Hallucinations, No Thought Broadcasting, No Ideas of Reference, No Obsessions, No Compulsions Cognition: Alert & Oriented-Person, Alert & Oriented-Place, Alert & Oriented- Time (partially), Rqurp-Husxfhte-Gprawyatk (mostly) Memory: Immediate (some mild confusion), Recent, Remote Intelligence: Average Insight Judgment: Poor (limited due to some degree of ongoing confusion, ) Result Diagram: 02/28/18 0603 02/28/18 0603 [facility] Assessment and Plan [id number]-[id number] Encounter Date: Feb 28, 2018 [id number] Encounter Time: 08:30 [facility] Plan: Necessary Precautions, Individual/Group Therapy, Admin/Titrate Meds, Educate Patient Tobacco Medications: Not Appropriate Condition Multpiple Antipsychotics Used: No Problems: (1) Acute weakness Status: Acute (2) Persistent depressive disorder Optional Permanent Comment: patient likely meeting criteria for major depression upon admission., 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 ongoing conflictual relationship with concerning Last Edited By: Ag Lux on Feb 28, 2018 11:18 Status: Chronic Condition 1. continue treatment. 2. arrange for transfer to [facility]. AG LUX MD Feb 28, 2018 11:35
[2018-02-28 14:21] VITALS: BP 148/82
[2018-02-28 18:21] VITALS: BP 122/64
[2018-03-01 02:30] VITALS: BP 158/83
[2018-03-01] MEDS: [UNRECOGNIZED DRUG - OTHER] PO SCH ×2 (08:21→19:09)
[2018-03-01] MEDS: VENLAFAXINE XR 75 MG CAPCR PO SCH (08:21)
[2018-03-01] MEDS: MULTIVITAMINS PO SCH (08:22)
[2018-03-01] MEDS: POTASSIUM CHL 20 MEQ TABCR PO SCH (08:22)
[2018-03-01] MEDS: MIDODRINE 2.5 MG TAB PO SCH ×3 (08:22→19:10)
--- NOTE | 2018-03-01 12:43 | BHS Progress Note ---
[facility] - Subjective Progress Notes Subjective Patient continues to do well on the unit ambulation is improved, appetite improved, no other concerns, overall mood improved, will await placement in [facility] early next week. Suicidal Ideation: None Homicidal Ideation: None [facility] - Objective Physical Exam Vital Signs Vital Signs Date Time Temp Pulse Resp B/P (MAP) Pulse Ox O2 Delivery O2 Flow Rate FiO2 03/01/18 02:30 98.6 78 15 158/83 (108) 91 Room Air Muscle Strength and Tone: WNL Gait and Station: Unsteady [facility] Medications Reviewed: Side Effects, Benefits of Medication, Risks Allergies Reviewed: Yes Mental Status Exam General Appearance: Casual, Good Eye Contact, Cooperative, Polite, Good Interaction; No Tearful; Psychomotor Retardation; No Bizarre Mannerisms, No Tics Speech: Clear, Spontaneous, Normal Rate, Normal Rhythm, Normal Volume (low), Normal Tone; No Rambling, No Inappropriate Mood: Euthymic (states "good" mood today) Affect: Full and Appropriate, Calm; No Sad, No Tearful, No Anxious, No Agitated Thought Process: Organized, Logical, Goal Directed; No Loose Associations, No Flight of Ideas Thought Content: No Suicidal Ideation, No Homicidal Ideation, No Delusions, No Auditory Halllucinations, No Visual Hallucinations, No Thought Broadcasting, No Ideas of Reference, No Obsessions, No Compulsions Sensorium: Clear Cognition: Alert & Oriented-Person, Alert & Oriented-Place, Alert & Oriented- Time (partially), Gxxgt-Xfetquho-Uiyrvazib (mostly) Memory: Immediate (some mild confusion), Recent, Remote Intelligence: Average Insight Judgment: Poor (limited due to some degree of ongoing confusion, ) Result Diagram: 02/28/1860202/28/1803 [facility] Assessment and Plan [id number] Encounter Date: Mar 01, 2018 [id number] Encounter Time: 11:30 [facility] Plan: Necessary Precautions, Individual/Group Therapy, Admin/Titrate Meds, Educate Patient Tobacco Medications: Not Appropriate Condition Multpiple Antipsychotics Used: No Problems: (1) Acute weakness Status: Acute (2) Persistent depressive disorder Optional Permanent Comment: patient likely meeting criteria for major depression upon admission., 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 ongoing conflictual relationship with concerning Last Edited By: Ag Lux on Feb 28, 2018 11:18 Status: Chronic Condition 1. continue treatment. 2. [facility] placement early next week. AG LUX MD Mar 01, 2018 12:43
[2018-03-01] MEDS: WARFARIN SOD 2.5 MG TAB PO SCH (12:59)
[2018-03-01 13:40] VITALS: BP 136/76
[2018-03-01 19:25] VITALS: BP 120/50
[2018-03-02 03:19] VITALS: BP 104/72
[2018-03-02] MEDS: VENLAFAXINE XR 75 MG CAPCR PO SCH (08:06)
[2018-03-02] MEDS: POTASSIUM CHL 20 MEQ TABCR PO SCH (08:06)
[2018-03-02] MEDS: MULTIVITAMINS PO SCH (08:06)
[2018-03-02] MEDS: [UNRECOGNIZED DRUG - OTHER] PO SCH ×2 (08:06→20:16)
[2018-03-02] MEDS: MIDODRINE 2.5 MG TAB PO SCH ×3 (08:06→20:17)
--- NOTE | 2018-03-02 10:30 | BHS Progress Note ---
BHS - Subjective Progress Notes Subjective Patient smiling this AM, and interacting appropriately. Patient's appetite seems to have diminished some again, patient agrees to work with staff to bath and go on escorted walk/ride in wheelchair. No other concerns. Will continue to work toward placement in skilled nursing early next week. Suicidal Ideation: None Homicidal Ideation: None S - Objective Physical Exam Vital Signs Hematology Test 02/20/18 06:03 02/23/18 18:20 02/24/18 12:05 02/28/18 06:03 Vitamin B12 Level 550 pg/mL (180-914) Vitamin D 1,25-Dihydroxy 53.0 pg/mL (19.9-79.3) Folate 16.1 ng/mL (>=5.9) Free Thyroxine 1.40 ng/dl (0.78-2.19) Free Triiodothyronine 2.6 pg/mL (2.4-4.2) Troponin I < 0.012 ng/ml Urine Color Yellow Urine Clarity Slightly-cloudy Urine pH 7.0 pH (4.8-9.5) Urine Specific [place] 1.011 Urine Protein Negative mg/dL (NEGATIVE) Urine Glucose (UA) Negative mg/dL (NEGATIVE) Urine Ketones Negative mg/dL (NEGATIVE) Urine Blood Negative (NEGATIVE) Urine Nitrite Negative (NEGATIVE) Urine Bilirubin Negative (NEGATIVE) Urine Urobilinogen Negative mg/dL (0.2-1.9) Urine Leukocyte Esterase Negative (NEGATIVE) Urine RBC None /HPF (0-2/HPF) Urine WBC 1 /HPF (0-5/HPF) Urine Squamous Epithelial Cells None /LPF (</=FEW) Urine Amorphous Crystals Few /HPF Urine Bacteria Negative /HPF (NONE-FEW) Urine Hyaline Casts Few /LPF (NONE-FEW) Urine Mucus Few /HPF (NONE-FEW) Red Blood Count 4.20 M/uL (4.00-5.60) Mean Corpuscular Volume 92.6 fL (80.0-96.0) Mean Corpuscular Hemoglobin 32.2 pg (26.0-33.0) Mean Corpuscular Hemoglobin Concent 34.8 g/dL (32.0-36.0) Red Cell Distribution Width 13.2 % (11.5-14.5) Mean Platelet Volume 7.8 fL (7.2-11.1) Neutrophils (%) (Auto) 57.0 % (39.4-72.5) Lymphocytes (%) (Auto) 31.1 % (17.6-49.6) Monocytes (%) (Auto) 9.0 % (4.1-12.4) Eosinophils (%) (Auto) 2.5 % (0.4-6.7) Basophils (%) (Auto) 0.4 % (0.3-1.4) Nucleated RBC Relative Count (auto) 0.0 /100WBC Neutrophils # (Auto) 3.1 K/uL (2.0-7.4) Lymphocytes # (Auto) 1.7 K/uL (1.3-3.6) Monocytes # (Auto) 0.5 K/uL (0.3-1.0) Eosinophils # (Auto) 0.1 K/uL (0.0-0.5) Basophils # (Auto) 0.0 K/uL (0.0-0.1) Nucleated RBC Absolute Count (auto) 0.00 K/uL Prothrombin Time 14.7 seconds (12.0-14.4) Prothromb Time International Ratio 1.15 Sodium Level 140 mmol/L (137-145) Potassium Level 3.9 mmol/L (3.5-5.0) Chloride Level 107 mmol/L (98-107) Carbon Dioxide Level 26 mmol/L (22-30) Blood Urea Nitrogen 18 mg/dl (9-21) Creatinine 0.80 mg/dl (0.66-1.25) Glomerular Filtration Rate Calc > 60.0 Random Glucose 93 mg/dl (75-110) Calcium Level 9.4 mg/dl (8.4-10.2) Total Bilirubin 0.9 mg/dl (0.2-1.3) Aspartate Amino Transf (AST/SGOT) 23 U/L (0-35) Alanine Aminotransferase (ALT/SGPT) 41 U/L (0-56) Alkaline Phosphatase 94 U/L (0-126) Total Protein 5.9 g/dl (6.3-8.2) Albumin 3.3 g/dl (3.5-5.0) Chemistry Test 02/20/18 06:03 02/23/18 18:20 02/24/18 12:05 02/28/18 06:03 Vitamin B12 Level 550 pg/mL (180-914) Vitamin D 1,25-Dihydroxy 53.0 pg/mL (19.9-79.3) Folate 16.1 ng/mL (>=5.9) Free Thyroxine 1.40 ng/dl (0.78-2.19) Free Triiodothyronine 2.6 pg/mL (2.4-4.2) Troponin I < 0.012 ng/ml Urine Color Yellow Urine Clarity Slightly-cloudy Urine pH 7.0 pH (4.8-9.5) Urine Specific [place] 1.011 Urine Protein Negative mg/dL (NEGATIVE) Urine Glucose (UA) Negative mg/dL (NEGATIVE) Urine Ketones Negative mg/dL (NEGATIVE) Urine Blood Negative (NEGATIVE) Urine Nitrite Negative (NEGATIVE) Urine Bilirubin Negative (NEGATIVE) Urine Urobilinogen Negative mg/dL (0.2-1.9) Urine Leukocyte Esterase Negative (NEGATIVE) Urine RBC None /HPF (0-2/HPF) Urine WBC 1 /HPF (0-5/HPF) Urine Squamous Epithelial Cells None /LPF (</=FEW) Urine Amorphous Crystals Few /HPF Urine Bacteria Negative /HPF (NONE-FEW) Urine Hyaline Casts Few /LPF (NONE-FEW) Urine Mucus Few /HPF (NONE-FEW) White Blood Count 5.5 k/uL (4.5-11.0) Red Blood Count 4.20 M/uL (4.00-5.60) Hemoglobin 13.5 g/dL (14.0-18.0) Hematocrit 38.9 % (42.0-52.0) Mean Corpuscular Volume 92.6 fL (80.0-96.0) Mean Corpuscular Hemoglobin 32.2 pg (26.0-33.0) Mean Corpuscular Hemoglobin Concent 34.8 g/dL (32.0-36.0) Red Cell Distribution Width 13.2 % (11.5-14.5) Platelet Count 165 K/uL (150-450) Mean Platelet Volume 7.8 fL (7.2-11.1) Neutrophils (%) (Auto) 57.0 % (39.4-72.5) Lymphocytes (%) (Auto) 31.1 % (17.6-49.6) Monocytes (%) (Auto) 9.0 % (4.1-12.4) Eosinophils (%) (Auto) 2.5 % (0.4-6.7) Basophils (%) (Auto) 0.4 % (0.3-1.4) Nucleated RBC Relative Count (auto) 0.0 /100WBC Neutrophils # (Auto) 3.1 K/uL (2.0-7.4) Lymphocytes # (Auto) 1.7 K/uL (1.3-3.6) Monocytes # (Auto) 0.5 K/uL (0.3-1.0) Eosinophils # (Auto) 0.1 K/uL (0.0-0.5) Basophils # (Auto) 0.0 K/uL (0.0-0.1) Nucleated RBC Absolute Count (auto) 0.00 K/uL Prothrombin Time 14.7 seconds (12.0-14.4) Prothromb Time International Ratio 1.15 Glomerular Filtration Rate Calc > 60.0 Calcium Level 9.4 mg/dl (8.4-10.2) Total Bilirubin 0.9 mg/dl (0.2-1.3) Aspartate Amino Transf (AST/SGOT) 23 U/L (0-35) Alanine Aminotransferase (ALT/SGPT) 41 U/L (0-56) Alkaline Phosphatase 94 U/L (0-126) Total Protein 5.9 g/dl (6.3-8.2) Albumin 3.3 g/dl (3.5-5.0) Coagulation Test 02/28/18 06:03 Prothrombin Time 14.7 seconds Prothromb Time International Ratio 1.15 Urinalysis Test 02/24/18 12:05 Urine Color Yellow Urine Clarity Slightly-cloudy Urine pH 7.0 pH (4.8-9.5) Urine Specific [place] 1.011 Urine Protein Negative mg/dL (NEGATIVE) Urine Glucose (UA) Negative mg/dL (NEGATIVE) Urine Ketones Negative mg/dL (NEGATIVE) Urine Blood Negative (NEGATIVE) Urine Nitrite Negative (NEGATIVE) Urine Bilirubin Negative (NEGATIVE) Urine Urobilinogen Negative mg/dL (0.2-1.9) Urine Leukocyte Esterase Negative (NEGATIVE) Urine RBC None /HPF (0-2/HPF) Urine WBC 1 /HPF (0-5/HPF) Urine Squamous Epithelial Cells None /LPF (</=FEW) Urine Amorphous Crystals Few /HPF Urine Bacteria Negative /HPF (NONE-FEW) Urine Hyaline Casts Few /LPF (NONE-FEW) Urine Mucus Few /HPF (NONE-FEW) Vital Signs Date Time Temp Pulse Resp B/P (MAP) Pulse Ox O2 Delivery O2 Flow Rate FiO2 03/02/18 03:19 98.9 93 104/72 (83) 93 Room Air 03/01/18 19:25 20 Muscle Strength and Tone: WNL Gait and Station: Unsteady [facility] Medications Reviewed: Side Effects, Benefits of Medication, Risks Allergies Reviewed: Yes Mental Status Exam General Appearance: Casual, Good Eye Contact, Cooperative, Polite, Good Interaction; No Tearful; Psychomotor Retardation; No Bizarre Mannerisms, No Tics Speech: Clear, Spontaneous, Normal Rate, Normal Rhythm, Normal Volume (low), Normal Tone; No Rambling, No Inappropriate Mood: Euthymic (states "good" mood today) Affect: Full and Appropriate, Calm; No Sad, No Tearful, No Anxious, No Agitated Thought Process: Organized, Logical, Goal Directed; No Loose Associations, No Flight of Ideas Thought Content: No Suicidal Ideation, No Homicidal Ideation, No Delusions, No Auditory Halllucinations, No Visual Hallucinations, No Thought Broadcasting, No Ideas of Reference, No Obsessions, No Compulsions Sensorium: Clear Cognition: Alert & Oriented-Person, Alert & Oriented-Place, Alert & Oriented- Time (partially), Gupbr-Omvkoqxw-Yxebdsrve (mostly) Memory: Immediate (some mild confusion), Recent, Remote Intelligence: Average Insight Judgment: Poor (limited due to some degree of ongoing confusion, generalized weakness continues) Result Diagram: 02/28/1803 02/28/1803 [facility] Assessment and Plan Irhj-[id number]-Hbwv Encounter Date: Mar 02, 2018 Jhpj-wi-[id number] Encounter Time: 10:30 [facility] Plan: Necessary Precautions, Individual/Group Therapy, Admin/Titrate Meds, Educate Patient Tobacco Medications: Not Appropriate Condition Multpiple Antipsychotics Used: No Problems: (1) Acute weakness Status: Acute (2) Persistent depressive disorder Optional Permanent Comment: patient likely meeting criteria for major depression upon admission., 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 ongoing conflictual relationship with concerning Last Edited By: Ag Milan on Feb 28, 2018 11:18 Status: AG Mazariegos MD Mar 02, 2018 10:30
[2018-03-02 13:25] VITALS: BP 116/74
[2018-03-03 01:30] VITALS: BP 118/74
[2018-03-03] MEDS: MULTIVITAMINS PO SCH (08:30)
[2018-03-03] MEDS: VENLAFAXINE XR 75 MG CAPCR PO SCH (08:30)
[2018-03-03] MEDS: [UNRECOGNIZED DRUG - OTHER] PO SCH ×2 (08:30→19:21)
[2018-03-03] MEDS: MIDODRINE 2.5 MG TAB PO SCH ×3 (08:31→19:21)
[2018-03-03] MEDS: POTASSIUM CHL 20 MEQ TABCR PO SCH (08:31)
--- NOTE | 2018-03-03 09:03 | BHS Progress Note ---
[facility] - Subjective Progress Notes Subjective "I'm doing ok." Interviewed in room, sitting upright, interacts well. Reports minimal anxiety about NH transfer, denies depression or suicidal ideation Reports appetite low, eating small amounts, sleep reported as sufficient Patient smiling this AM, and interacting appropriately. Reports some urinary incontinence at night, denies burning or hesitation Will continue to work toward placement in custodial Suicidal Ideation: None Homicidal Ideation: None [facility] - Objective Physical Exam Vital Signs Vital Signs Date Time Temp Pulse Resp B/P (MAP) Pulse Ox O2 Delivery O2 Flow Rate FiO2 03/03/18 01:30 97.3 71 118/74 (89) 93 Room Air 03/02/18 13:25 24 Muscle Strength and Tone: WNL Gait and Station: Unsteady [facility] Medications Reviewed: Side Effects, Benefits of Medication, Risks Allergies Reviewed: Yes Mental Status Exam General Appearance: Casual, Good Eye Contact, Cooperative, Polite, Good Interaction; No Tearful; Psychomotor Retardation; No Bizarre Mannerisms, No Tics Speech: Clear, Spontaneous, Normal Rate, Normal Rhythm, Normal Volume (low), Normal Tone; No Rambling, No Inappropriate Mood: Euthymic (states "good" mood today) Affect: Full and Appropriate, Calm; No Sad, No Tearful, No Anxious, No Agitated Thought Process: Organized, Logical, Goal Directed; No Loose Associations, No Flight of Ideas Thought Content: No Suicidal Ideation, No Homicidal Ideation, No Delusions, No Auditory Halllucinations, No Visual Hallucinations, No Thought Broadcasting, No Ideas of Reference, No Obsessions, No Compulsions Sensorium: Clear Cognition: Alert & Oriented-Person, Alert & Oriented-Place, Alert & Oriented- Time (partially), Fjoir-Lkrcwlyw-Gxgzrpnxj (mostly) Memory: Immediate (some mild confusion), Recent, Remote Intelligence: Average Insight Judgment: Poor (limited due to some degree of ongoing confusion, generalized weakness continues) Result Diagram: 02/28/18 0603 02/28/18 0603 Microbiology Laboratory Tests 02/28/18 06:03 Laboratory Tests 02/20/18 06:03: Vitamin B12 Level 550, Vitamin D 1,25-Dihydroxy 53.0, Folate 16.1, Free Thyroxine 1.40, Free Triiodothyronine 2.6 02/23/18 18:20: Troponin I < 0.012 02/24/18 12:05: Urine Color Yellow, Urine Clarity Slightly-cloudy, Urine pH 7.0, Urine Specific [place] 1.011, Urine Protein Negative, Urine Glucose (UA) Negative, Urine Ketones Negative, Urine Blood Negative, Urine Nitrite Negative, Urine Bilirubin Negative, Urine Urobilinogen Negative, Urine Leukocyte Esterase Negative, Urine RBC None, Urine WBC 1, Urine Squamous Epithelial Cells None, Urine Amorphous Crystals Few, Urine Bacteria Negative, Urine Hyaline Casts Few, Urine Mucus Few 02/28/18 06:03: White Blood Count 5.5, Red Blood Count 4.20, Hemoglobin 13.5, Hematocrit 38.9, Mean Corpuscular Volume 92.6, Mean Corpuscular Hemoglobin 32.2, Mean Corpuscular Hemoglobin Concent 34.8, Red Cell Distribution Width 13.2, Platelet Count 165, Mean Platelet Volume 7.8, Neutrophils (%) (Auto) 57.0, Lymphocytes (%) (Auto) 31.1, Monocytes (%) (Auto) 9.0, Eosinophils (%) (Auto) 2.5, Basophils (%) (Auto) 0.4, Nucleated RBC Relative Count (auto) 0.0, Neutrophils # (Auto) 3.1, Lymph ocytes # (Auto) 1.7, Monocytes # (Auto) 0.5, Eosinophils # (Auto) 0.1, Basophils # (Auto) 0.0, Nucleated RBC Absolute Count (auto) 0.00, Prothrombin Time 14.7, Prothromb Time International Ratio 1.15, Sodium Level 140, Potassium Level 3.9, Chloride Level 107, Carbon Dioxide Level 26, Blood Urea Nitrogen 18, Creatinine 0.80, Glomerular Filtration Rate Calc > 60.0, Random Glucose 93, Calcium Level 9.4, Total Bilirubin 0.9, Aspartate Amino Transf (AST/SGOT) 23, Alanine Aminotra nsferase (ALT/SGPT) 41, Alkaline Phosphatase 94, Total Protein 5.9, Albumin 3.3 Imaging Medications (Trade) Dose Ordered Sig/Jack Route PRN Reason Start Time Stop Time Status Last Admin Dose Admin Fludrocortisone Acetate (Florinef 0.1 Mg Tab (Or Equiv)) 0.1 mg BID@0900,1900 PO 02/21/18 19:00 03/23/18 18:59 03/03/18 08:30 Influenza Virus Vaccine Quadrival (Flu Vac ([id number] Formula)) 0.5 ml ONCE ONCE IM ONLY 02/22/18 14:55 02/22/18 14:56 DC 02/22/18 15:21 Midodrine (Pro-Amatine 2.5 Mg Tab (Or Equiv)) 5 mg TID@0900,1400,1900 PO 02/24/18 14:00 03/26/18 13:59 03/03/18 08:31 Multivitamins (Thera-M Enhanced Tab (Or Equiv)) 1 each QDAY PO 02/20/18 09:00 03/22/18 08:59 03/03/18 08:30 Potassium Chloride (Klor-Con M20 (*) 20 Meq Tabcr (Or Equiv)) 20 meq QDAY PO 02/22/18 13:05 03/24/18 13:04 03/03/18 08:31 Sertraline HCl (Zoloft 50 Mg Tab (Or Equiv)) 25 mg QDAY PO 02/20/18 09:00 02/21/18 06:35 DC 02/20/18 08:38 Venlafaxine HCl (Effexor-Xr 37.5 Mg Capcr (Or Equiv)) 37.5 mg ONCE ONCE PO 02/21/18 09:30 02/21/18 09:41 DC 02/21/18 09:57 Venlafaxine HCl (Effexor-Xr 75 Mg Capcr (Or Equiv)) 75 mg QDAY PO 02/22/18 09:00 03/24/18 08:59 03/03/18 08:30 Warfarin Sodium (Coumadin 2.5 Mg Tab (Or Equiv)) 2.5 mg ONCE ONCE PO 02/20/18 13:45 02/20/18 13:46 DC 02/20/18 13:59 [facility] Assessment and Plan [id number] Encounter Date: Mar 03, 2018 Nhzh-[id number] Encounter Time: 09:00 [facility] Plan: Necessary Precautions, Individual/Group Therapy, Admin/Titrate Meds, Educate Patient Tobacco Medications: Not Appropriate Condition Multpiple Antipsychotics Used: No Problems: (1) Persistent depressive disorder Optional Permanent Comment: patient likely meeting criteria for major depression upon admission., 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 ongoing conflictual relationship with concerning Last Edited By: Viraj Milan on Feb 28, 2018 11:18 Status: Chronic (2) Waller's disease Status: Chronic (3) Suicidal intent Status: Resolved Condition Continue current medications and treatment Fall precautions Encourage out of bed daytime hours with assist Awaiting custodial placement and transfer MAULIK ROBINS NP Mar 03, 2018 09:03
[2018-03-03 11:41] LABS: PLATELET COUNT, AUTOMATED 163 K/uL (150-450)
[2018-03-03] MEDS: WARFARIN SOD 2.5 MG TAB PO SCH (13:26)
[2018-03-03 18:40] VITALS: BP 140/70
[2018-03-04 06:28] VITALS: BP 164/78
[2018-03-04 08:10] VITALS: BP 138/76
--- NOTE | 2018-03-04 08:49 | BHS Progress Note ---
[facility] - Subjective Progress Notes Subjective "I'm doing ok." Patient getting up with physical therapy, up for restroom Appetite fair, drinking Ensure and Boost Mood dysthymic, denies urge for self harm, denies suicidal ideation "Some" depression and anxiety Sleep sufficient, visiting daily Suicidal Ideation: None Homicidal Ideation: None [facility] - Objective Physical Exam Vital Signs Vital Signs Date Time Temp Pulse Resp B/P (MAP) Pulse Ox O2 Delivery O2 Flow Rate FiO2 03/04/18 06:28 97.9 82 164/78 (106) 92 Room Air 03/02/18 13:25 24 Muscle Strength and Tone: WNL Gait and Station: Unsteady [facility] Medications Reviewed: Side Effects, Benefits of Medication, Risks Allergies Reviewed: Yes Mental Status Exam General Appearance: Casual, Good Eye Contact, Cooperative, Polite, Good Interaction; No Tearful; Psychomotor Retardation; No Bizarre Mannerisms, No Tics Speech: Clear, Spontaneous, Normal Rate, Normal Rhythm, Normal Volume (low), Normal Tone; No Rambling, No Inappropriate Mood: Euthymic (states "good" mood today) Affect: Full and Appropriate, Calm; No Sad, No Tearful, No Anxious, No Agitated Thought Process: Organized, Logical, Goal Directed; No Loose Associations, No Flight of Ideas Thought Content: No Suicidal Ideation, No Homicidal Ideation, No Delusions, No Auditory Halllucinations, No Visual Hallucinations, No Thought Broadcasting, No Ideas of Reference, No Obsessions, No Compulsions Sensorium: Clear Cognition: Alert & Oriented-Person, Alert & Oriented-Place, Alert & Oriented- Time (partially), Sqbkt-Yzcltbny-Sysgxxgeo (mostly) Memory: Immediate (some mild confusion), Recent, Remote Intelligence: Average Insight Judgment: Poor (limited due to some degree of ongoing confusion, generalized weakness continues) Result Diagram: 03/03/18 1131 03/03/18 1131 Microbiology Medications (Trade) Dose Ordered Sig/Jack Route PRN Reason Start Time Stop Time Status Last Admin Dose Admin Fludrocortisone Acetate (Florinef 0.1 Mg Tab (Or Equiv)) 0.1 mg BID@0900,1900 PO 02/21/18 19:00 03/23/18 18:59 03/03/18 19:21 Influenza Virus Vaccine Quadrival (Flu Vac ([id number] Formula)) 0.5 ml ONCE ONCE IM ONLY 02/22/18 14:55 02/22/18 14:56 DC 02/22/18 15:21 Midodrine (Pro-Amatine 2.5 Mg Tab (Or Equiv)) 5 mg TID@0900,1400,1900 PO 02/24/18 14:00 03/26/18 13:59 03/03/18 19:21 Multivitamins (Thera-M Enhanced Tab (Or Equiv)) 1 each QDAY PO 02/20/18 09:00 03/22/18 08:59 03/03/18 08:30 Potassium Chloride (Klor-Con M20 (*) 20 Meq Tabcr (Or Equiv)) 20 meq QDAY PO 02/22/18 13:05 03/24/18 13:04 03/03/18 08:31 Sertraline HCl (Zoloft 50 Mg Tab (Or Equiv)) 25 mg QDAY PO 02/20/18 09:00 02/21/18 06:35 DC 02/20/18 08:38 Venlafaxine HCl (Effexor-Xr 37.5 Mg Capcr (Or Equiv)) 37.5 mg ONCE ONCE PO 02/21/18 09:30 02/21/18 09:41 DC 02/21/18 09:57 Venlafaxine HCl (Effexor-Xr 75 Mg Capcr (Or Equiv)) 75 mg QDAY PO 02/22/18 09:00 03/24/18 08:59 03/03/18 08:30 Warfarin Sodium (Coumadin 2.5 Mg Tab (Or Equiv)) 2.5 mg ONCE ONCE PO 02/20/18 13:45 02/20/18 13:46 DC 02/20/18 13:59 Imaging Laboratory Tests 03/03/18 11:31 Laboratory - CBC/BMP Diagrams 03/03/18 11:31 [facility] Assessment and Plan Tayi-ly-Swdh Encounter Date: Mar 04, 2018 Uzky-ur-Bdot Encounter Time: 08:47 [facility] Plan: Necessary Precautions, Individual/Group Therapy, Admin/Titrate Meds, Educate Patient Tobacco Medications: Not Appropriate Condition Multpiple Antipsychotics Used: No Problems: (1) Persistent depressive disorder Optional Permanent Comment: patient likely meeting criteria for major depression upon admission., 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 ongoing conflictual relationship with concerning Last Edited By: Viraj Milan on Feb 28, 2018 11:18 Status: Chronic (2) Sidney's disease Status: Chronic (3) Suicidal intent Status: Resolved Condition Encourage out of bed daytime hours Continue current medication and treatment Awaiting NH transfer MAULIK ROBINS NP Mar 04, 2018 08:49
[2018-03-04] MEDS: MULTIVITAMINS PO SCH (09:26)
[2018-03-04] MEDS: POTASSIUM CHL 20 MEQ TABCR PO SCH (09:26)
[2018-03-04] MEDS: MIDODRINE 2.5 MG TAB PO SCH ×3 (09:26→18:53)
[2018-03-04] MEDS: [UNRECOGNIZED DRUG - OTHER] PO SCH ×2 (09:26→18:53)
[2018-03-04] MEDS: VENLAFAXINE XR 75 MG CAPCR PO SCH (09:26)
[2018-03-05 05:33] VITALS: BP 156/80
[2018-03-05] MEDS: POTASSIUM CHL 20 MEQ TABCR PO SCH (09:11)
[2018-03-05] MEDS: MULTIVITAMINS PO SCH (09:11)
[2018-03-05] MEDS: [UNRECOGNIZED DRUG - OTHER] PO SCH ×2 (09:11→20:12)
[2018-03-05] MEDS: VENLAFAXINE XR 75 MG CAPCR PO SCH (09:11)
[2018-03-05] MEDS: MIDODRINE 2.5 MG TAB PO SCH ×3 (09:11→20:12)
--- NOTE | 2018-03-05 11:32 | BHS Progress Note ---
[facility] - Subjective Progress Notes Subjective Patient reporting "I am fine" when asked of his mood. Appetite is minimal today, and patient verbalizes contentment in staying in his room, encouraged to engage in activities. Patient indicates an understanding that he may transfer to [facility] as early as today. No other concerns. will continue t reatment, and plan for discharge to care Center today. Suicidal Ideation: None Homicidal Ideation: None [facility] - Objective Physical Exam Vital Signs Vital Signs Date Time Temp Pulse Resp B/P (MAP) Pulse Ox O2 Delivery O2 Flow Rate FiO2 03/05/18 05:33 98.2 69 15 156/80 (105) 92 Room Air Muscle Strength and Tone: WNL Gait and Station: Unsteady [facility] Medications Reviewed: Side Effects, Benefits of Medication, Risks Allergies Reviewed: Yes Mental Status Exam General Appearance: Casual, Good Eye Contact, Cooperative, Polite, Good Interaction; No Tearful; Psychomotor Retardation; No Bizarre Mannerisms, No Tics Speech: Clear, Spontaneous, Normal Rate, Normal Rhythm, Normal Volume (low), Normal Tone; No Rambling, No Inappropriate Mood: Euthymic (states "good" mood today) Affect: Full and Appropriate, Calm; No Sad, No Tearful, No Anxious, No Agitated Thought Process: Organized, Logical, Goal Directed; No Loose Associations, No Flight of Ideas Thought Content: No Suicidal Ideation, No Homicidal Ideation, No Delusions, No Auditory Halllucinations, No Visual Hallucinations, No Thought Broadcasting, No Ideas of Reference, No Obsessions, No Compulsions Sensorium: Clear Cognition: Alert & Oriented-Person, Alert & Oriented-Place, Alert & Oriented- Time (partially), Tzjum-Akejazaz-[place]isley Memory: Immediate (some mild confusion at times), Recent, Remote Intelligence: Average Insight Judgment: Poor (limited due to some degree of ongoing confusion, generalized weakness continues) Result Diagram: 03/03/18 1131 03/03/18 1131 [facility] Assessment and Plan [id number] Encounter Date: Mar 05, 2018 [id number] Encounter Time: 11:00 [facility] Plan: Necessary Precautions, Individual/Group Therapy, Admin/Titrate Meds, Educate Patient Tobacco Medications: Not Appropriate Condition Multpiple Antipsychotics Used: No Problems: (1) Acute weakness Status: Acute (2) Persistent depressive disorder Optional Permanent Comment: patient likely meeting criteria for major depression upon admission., 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 ongoing conflictual relationship with concerning Last Edited By: Ag Lux on Feb 28, 2018 11:18 Status: Chronic Condition 1. continue treatment. 2. plan for discharge to [facility]. AG LUX MD Mar 05, 2018 11:32
[2018-03-05 12:54] VITALS: BP 146/76
[2018-03-05] MEDS ORDERED: MIDO5TAB20 PO (13:10)
[2018-03-05] MEDS ORDERED: VENL75CA58 PO (13:10)
[2018-03-05] MEDS ORDERED: POTA20PA31 PO (13:11)
[2018-03-05] MEDS ORDERED: MULT-859 PO (13:12)
[2018-03-05] MEDS ORDERED: POTA20TA85 PO (13:12)
[2018-03-05] MEDS: WARFARIN SOD 2.5 MG TAB PO SCH (13:33)
[2018-03-05 21:34] VITALS: BP 152/84
[2018-03-06 04:47] VITALS: BP 152/74
[2018-03-06] MEDS: POTASSIUM CHL 20 MEQ TABCR PO SCH (08:33)
[2018-03-06] MEDS: VENLAFAXINE XR 75 MG CAPCR PO SCH (08:34)
[2018-03-06] MEDS: MULTIVITAMINS PO SCH (08:34)
[2018-03-06] MEDS: [UNRECOGNIZED DRUG - OTHER] PO SCH ×2 (09:04→19:00)
[2018-03-06] MEDS: MIDODRINE 2.5 MG TAB PO SCH ×3 (09:05→19:00)
--- NOTE | 2018-03-06 11:41 | BHS Progress Note ---
[facility]HS - Subjective Progress Notes Subjective Patient remains calm and pleasant demonstrating improved memory overall concerning events from a day before. No complaints today. Continue to await [facility] transfer. No other complaints today. Suicidal Ideation: None Homicidal Ideation: None [facility] - Objective Physical Exam Vital Signs Vital Signs Date Time Temp Pulse Resp B/P (MAP) Pulse Ox O2 Delivery O2 Flow Rate FiO2 03/06/18 04:47 98.1 81 16 152/74 (100) 95 Room Air Hematology Test 02/20/18 06:03 02/23/18 18:20 02/24/18 12:05 02/28/18 06:03 Vitamin B12 Level 550 pg/mL (180-914) Vitamin D 1,25-Dihydroxy 53.0 pg/mL (19.9-79.3) Folate 16.1 ng/mL (>=5.9) Free Thyroxine 1.40 ng/dl (0.78-2.19) Free Triiodothyronine 2.6 pg/mL (2.4-4.2) Troponin I < 0.012 ng/ml Urine Color Yellow Urine Clarity Slightly-cloudy Urine pH 7.0 pH (4.8-9.5) Urine Specific [place] 1.011 Urine Protein Negative mg/dL (NEGATIVE) Urine Glucose (UA) Negative mg/dL (NEGATIVE) Urine Ketones Negative mg/dL (NEGATIVE) Urine Blood Negative (NEGATIVE) Urine Nitrite Negative (NEGATIVE) Urine Bilirubin Negative (NEGATIVE) Urine Urobilinogen Negative mg/dL (0.2-1.9) Urine Leukocyte Esterase Negative (NEGATIVE) Urine RBC None /HPF (0-2/HPF) Urine WBC 1 /HPF (0-5/HPF) Urine Squamous Epithelial Cells None /LPF (</=FEW) Urine Amorphous Crystals Few /HPF Urine Bacteria Negative /HPF (NONE-FEW) Urine Hyaline Casts Few /LPF (NONE-FEW) Urine Mucus Few /HPF (NONE-FEW) Prothrombin Time 14.7 seconds (12.0-14.4) Prothromb Time International Ratio 1.15 Test 03/03/18 11:31 Red Blood Count 4.15 M/uL (4.00-5.60) Mean Corpuscular Volume 92.8 fL (80.0-96.0) Mean Corpuscular Hemoglobin 32.1 pg (26.0-33.0) Mean Corpuscular Hemoglobin Concent 34.7 g/dL (32.0-36.0) Red Cell Distribution Width 13.4 % (11.5-14.5) Mean Platelet Volume 7.8 fL (7.2-11.1) Neutrophils (%) (Auto) 66.2 % (39.4-72.5) Lymphocytes (%) (Auto) 22.4 % (17.6-49.6) Monocytes (%) (Auto) 9.4 % (4.1-12.4) Eosinophils (%) (Auto) 1.6 % (0.4-6.7) Basophils (%) (Auto) 0.4 % (0.3-1.4) Nucleated RBC Relative Count (auto) 0.0 /100WBC Neutrophils # (Auto) 2.9 K/uL (2.0-7.4) Lymphocytes # (Auto) 1.0 K/uL (1.3-3.6) Monocytes # (Auto) 0.4 K/uL (0.3-1.0) Eosinophils # (Auto) 0.1 K/uL (0.0-0.5) Basophils # (Auto) 0.0 K/uL (0.0-0.1) Nucleated RBC Absolute Count (auto) 0.00 K/uL Peripheral Blood Smear No Y/N Sodium Level 140 mmol/L (137-145) Potassium Level 4.2 mmol/L (3.5-5.0) Chloride Level 108 mmol/L (98-107) Carbon Dioxide Level 25 mmol/L (22-30) Blood Urea Nitrogen 16 mg/dl (9-21) Creatinine 0.80 mg/dl (0.66-1.25) Glomerular Filtration Rate Calc > 60.0 Random Glucose 115 mg/dl (75-110) Calcium Level 9.3 mg/dl (8.4-10.2) Total Bilirubin 0.6 mg/dl (0.2-1.3) Aspartate Amino Transf (AST/SGOT) 25 U/L (0-35) Alanine Aminotransferase (ALT/SGPT) 41 U/L (0-56) Alkaline Phosphatase 84 U/L (0-126) Total Protein 5.7 g/dl (6.3-8.2) Albumin 3.2 g/dl (3.5-5.0) Chemistry Test 02/20/18 06:03 02/23/18 18:20 02/24/18 12:05 02/28/18 06:03 Vitamin B12 Level 550 pg/mL (180-914) Vitamin D 1,25-Dihydroxy 53.0 pg/mL (19.9-79.3) Folate 16.1 ng/mL (>=5.9) Free Thyroxine 1.40 ng/dl (0.78-2.19) Free Triiodothyronine 2.6 pg/mL (2.4-4.2) Troponin I < 0.012 ng/ml Urine Color Yellow Urine Clarity Slightly-cloudy Urine pH 7.0 pH (4.8-9.5) Urine Specific [place] 1.011 Urine Protein Negative mg/dL (NEGATIVE) Urine Glucose (UA) Negative mg/dL (NEGATIVE) Urine Ketones Negative mg/dL (NEGATIVE) Urine Blood Negative (NEGATIVE) Urine Nitrite Negative (NEGATIVE) Urine Bilirubin Negative (NEGATIVE) Urine Urobilinogen Negative mg/dL (0.2-1.9) Urine Leukocyte Esterase Negative (NEGATIVE) Urine RBC None /HPF (0-2/HPF) Urine WBC 1 /HPF (0-5/HPF) Urine Squamous Epithelial Cells None /LPF (</=FEW) Urine Amorphous Crystals Few /HPF Urine Bacteria Negative /HPF (NONE-FEW) Urine Hyaline Casts Few /LPF (NONE-FEW) Urine Mucus Few /HPF (NONE-FEW) Prothrombin Time 14.7 seconds (12.0-14.4) Prothromb Time International Ratio 1.15 Test 03/03/18 11:31 White Blood Count 4.4 k/uL (4.5-11.0) Red Blood Count 4.15 M/uL (4.00-5.60) Hemoglobin 13.4 g/dL (14.0-18.0) Hematocrit 38.5 % (42.0-52.0) Mean Corpuscular Volume 92.8 fL (80.0-96.0) Mean Corpuscular Hemoglobin 32.1 pg (26.0-33.0) Mean Corpuscular Hemoglobin Concent 34.7 g/dL (32.0-36.0) Red Cell Distribution Width 13.4 % (11.5-14.5) Platelet Count 163 K/uL (150-450) Mean Platelet Volume 7.8 fL (7.2-11.1) Neutrophils (%) (Auto) 66.2 % (39.4-72.5) Lymphocytes (%) (Auto) 22.4 % (17.6-49.6) Monocytes (%) (Auto) 9.4 % (4.1-12.4) Eosinophils (%) (Auto) 1.6 % (0.4-6.7) Basophils (%) (Auto) 0.4 % (0.3-1.4) Nucleated RBC Relative Count (auto) 0.0 /100WBC Neutrophils # (Auto) 2.9 K/uL (2.0-7.4) Lymphocytes # (Auto) 1.0 K/uL (1.3-3.6) Monocytes # (Auto) 0.4 K/uL (0.3-1.0) Eosinophils # (Auto) 0.1 K/uL (0.0-0.5) Basophils # (Auto) 0.0 K/uL (0.0-0.1) Nucleated RBC Absolute Count (auto) 0.00 K/uL Peripheral Blood Smear No Y/N Glomerular Filtration Rate Calc > 60.0 Calcium Level 9.3 mg/dl (8.4-10.2) Total Bilirubin 0.6 mg/dl (0.2-1.3) Aspartate Amino Transf (AST/SGOT) 25 U/L (0-35) Alanine Aminotransferase (ALT/SGPT) 41 U/L (0-56) Alkaline Phosphatase 84 U/L (0-126) Total Protein 5.7 g/dl (6.3-8.2) Albumin 3.2 g/dl (3.5-5.0) Coagulation Test 02/28/18 06:03 Prothrombin Time 14.7 seconds Prothromb Time International Ratio 1.15 Urinalysis Test 02/24/18 12:05 Urine Color Yellow Urine Clarity Slightly-cloudy Urine pH 7.0 pH (4.8-9.5) Urine Specific [place] 1.011 Urine Protein Negative mg/dL (NEGATIVE) Urine Glucose (UA) Negative mg/dL (NEGATIVE) Urine Ketones Negative mg/dL (NEGATIVE) Urine Blood Negative (NEGATIVE) Urine Nitrite Negative (NEGATIVE) Urine Bilirubin Negative (NEGATIVE) Urine Urobilinogen Negative mg/dL (0.2-1.9) Urine Leukocyte Esterase Negative (NEGATIVE) Urine RBC None /HPF (0-2/HPF) Urine WBC 1 /HPF (0-5/HPF) Urine Squamous Epithelial Cells None /LPF (</=FEW) Urine Amorphous Crystals Few /HPF Urine Bacteria Negative /HPF (NONE-FEW) Urine Hyaline Casts Few /LPF (NONE-FEW) Urine Mucus Few /HPF (NONE-FEW) Muscle Strength and Tone: WNL Gait and Station: Unsteady [facility] Medications Reviewed: Side Effects, Benefits of Medication, Risks Allergies Reviewed: Yes Mental Status Exam General Appearance: Casual, Well Groomed, Good Eye Contact, Cooperative, Polite, Good Interaction; No Tearful; Psychomotor Retardation; No Bizarre Mannerisms, No Tics Speech: Clear, Spontaneous, Normal Rate, Normal Rhythm, Normal Volume (low), Normal Tone; No Rambling, No Inappropriate Mood: Euthymic (states "good" mood today) Affect: Full and Appropriate, Calm; No Sad, No Tearful, No Anxious, No Agitated Thought Process: Organized, Logical, Goal Directed; No Loose Associations, No Flight of Ideas Thought Content: No Suicidal Ideation, No Homicidal Ideation, No Delusions, No Auditory Halllucinations, No Visual Hallucinations, No Thought Broadcasting, No Ideas of Reference, No Obsessions, No Compulsions Sensorium: Clear Cognition: Alert & Oriented-Person, Alert & Oriented-Place, Alert & Oriented- Time (partially), Tntyc-Pobkpoei-Xyhdqcyzu Memory: Immediate (some mild confusion at times), Recent, Remote Intelligence: Average Insight Judgment: Poor (limited due to some degree of ongoing confusion, generalized weakness continues) Result Diagram: 03/03/18 1131 03/03/18 1131 [facility] Assessment and Plan Afds-[id number]-[id number] Encounter Date: Mar 06, 2018 [id number] Encounter Time: 11:30 [facility] Plan: Necessary Precautions, Individual/Group Therapy, Admin/Titrate Meds, Educate Patient Tobacco Medications: Not Appropriate Condition Multpiple Antipsychotics Used: No Problems: (1) Acute weakness Status: Acute (2) Persistent depressive disorder Optional Permanent Comment: patient likely meeting criteria for major depression upon admission., Depression secondary to general medical condition is a concern, 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 ongoing conflictual relationship with concerning Last Edited By: Ag Lux on Feb 28, 2018 11:18 Status: Chronic Condition 1. continue treatment. 2. await transfer to [facility]. AG LUX MD Mar 06, 2018 11:41
[2018-03-06] MEDS: WARFARIN SOD 2.5 MG TAB PO SCH (14:06)
[2018-03-06 14:35] VITALS: BP 138/72
[2018-03-06 21:19] VITALS: BP 150/72
[2018-03-07 04:27] VITALS: BP 139/75
[2018-03-07] MEDS: MIDODRINE 2.5 MG TAB PO SCH ×3 (08:26→19:57)
[2018-03-07] MEDS: MULTIVITAMINS PO SCH (08:26)
[2018-03-07] MEDS: [UNRECOGNIZED DRUG - OTHER] PO SCH ×2 (08:26→19:57)
[2018-03-07] MEDS: POTASSIUM CHL 20 MEQ TABCR PO SCH (08:26)
[2018-03-07] MEDS: VENLAFAXINE XR 75 MG CAPCR PO SCH (08:26)
--- NOTE | 2018-03-07 09:46 | BHS Progress Note ---
[facility] - Subjective Progress Notes Subjective Patient continues to be very polite and cooperative on the unit. Patient accepting of transfer for continued care at [facility]. Some concerns of constipation, patient is consuming prune juice. Patient reports good mood, and no other complaints. Will continue to await transfer. Suicidal Ideation: None Homicidal Ideation: None [facility] - Objective Physical Exam Vital Signs Vital Signs Date Time Temp Pulse Resp B/P (MAP) Pulse Ox O2 Delivery O2 Flow Rate FiO2 03/07/18 04:27 97.9 75 15 139/75 (96) 94 Room Air Muscle Strength and Tone: WNL Gait and Station: Unsteady [facility] Medications Reviewed: Side Effects, Benefits of Medication, Risks Allergies Reviewed: Yes Mental Status Exam General Appearance: Casual, Well Groomed, Good Eye Contact, Cooperative, Polite, Good Interaction; No Tearful; Psychomotor Retardation; No Bizarre Mannerisms, No Tics Speech: Clear, Spontaneous, Normal Rate, Normal Rhythm, Normal Volume (low), Normal Tone; No Rambling, No Inappropriate Mood: Euthymic (states "good" mood today) Affect: Full and Appropriate, Calm; No Sad, No Tearful, No Anxious, No Agitated Thought Process: Organized, Logical, Goal Directed; No Loose Associations, No Flight of Ideas Thought Content: No Suicidal Ideation, No Homicidal Ideation, No Delusions, No Auditory Halllucinations, No Visual Hallucinations, No Thought Broadcasting, No Ideas of Reference, No Obsessions, No Compulsions Sensorium: Clear Cognition: Alert & Oriented-Person, Alert & Oriented-Place, Alert & Oriented- Time (partially), Odutb-Vbwhmfvu-Zksfiikqa Memory: Immediate (some mild confusion at times), Recent, Remote Intelligence: Average Insight Judgment: Poor (limited due to some degree of ongoing confusion, generalized weakness continues) Result Diagram: 03/03/18 1131 03/03/18 1131 [facility] Assessment and Plan [id number] Encounter Date: Mar 07, 2018 [id number] Encounter Time: 09:30 [facility] Plan: Necessary Precautions, Individual/Group Therapy, Admin/Titrate Meds, Educate Patient Tobacco Medications: Not Appropriate Condition Multpiple Antipsychotics Used: No Problems: (1) Acute weakness Status: Acute (2) Persistent depressive disorder Optional Permanent Comment: patient likely meeting criteria for major depression upon admission., Depression secondary to general medical condition is a concern, regarding complications from [place]'s disease. ongoing conflictual relationship with concerning Last Edited By: Ag Lux on Feb 28, 2018 11:18 Status: Chronic Condition 1. continue treatment. 2. await transfer to [facility]. AG LUX MD Mar 07, 2018 09:46
[2018-03-07 11:27] VITALS: BP 122/74
[2018-03-08 06:03] VITALS: BP 150/75
[2018-03-08] MEDS: VENLAFAXINE XR 75 MG CAPCR PO SCH (08:18)
[2018-03-08] MEDS: [UNRECOGNIZED DRUG - OTHER] PO SCH ×2 (08:18→19:30)
[2018-03-08] MEDS: POTASSIUM CHL 20 MEQ TABCR PO SCH (08:19)
[2018-03-08] MEDS: MIDODRINE 2.5 MG TAB PO SCH ×3 (08:19→19:30)
[2018-03-08] MEDS: MULTIVITAMINS PO SCH (08:19)
[2018-03-08 11:43] VITALS: BP 112/65
[2018-03-08] MEDS ORDERED: BISACODYL 5 MG TABEC PO ONE (12:10)
--- NOTE | 2018-03-08 12:24 | BHS Progress Note ---
[facility] - Subjective Progress Notes Subjective Patient continues to do well on the unit, and awaits transfer to residential. Patient reports good mood overall. sleep and appetite okay. Will hopefully transfer to residential today. Patient verbalizing some complaints of constipation, will address today with bowel stimulant. Suicidal Ideation: None Homicidal Ideation: None S - Objective Physical Exam Muscle Strength and Tone: WNL Gait and Station: Unsteady [facility] Medications Reviewed: Side Effects, Benefits of Medication, Risks Allergies Reviewed: Yes Mental Status Exam General Appearance: Casual, Well Groomed, Good Eye Contact, Cooperative, Polite, Good Interaction; No Tearful; Psychomotor Retardation; No Bizarre Mannerisms, No Tics Speech: Clear, Spontaneous, Normal Rate, Normal Rhythm, Normal Volume (low), Normal Tone; No Rambling, No Inappropriate Mood: Euthymic (states "good" mood today) Affect: Full and Appropriate, Calm; No Sad, No Tearful, No Anxious, No Agitated Thought Process: Organized, Logical, Goal Directed; No Loose Associations, No Flight of Ideas Thought Content: No Suicidal Ideation, No Homicidal Ideation, No Delusions, No Auditory Halllucinations, No Visual Hallucinations, No Thought Broadcasting, No Ideas of Reference, No Obsessions, No Compulsions Sensorium: Clear Cognition: Alert & Oriented-Person, Alert & Oriented-Place, Alert & Oriented- Time (partially), Wotsw-Fwcengrm-Dlsqilujh Memory: Immediate (some mild confusion at times), Recent, Remote Intelligence: Average Insight Judgment: Poor (limited due to some degree of ongoing confusion, generalized weakness continues) [facility] Assessment and Plan Oqsb-yn-Nhig Encounter Date: Mar 08, 2018 [id number]-[id number] Encounter Time: 10:00 [facility] Plan: Necessary Precautions, Individual/Group Therapy, Admin/Titrate Meds, Educate Patient Tobacco Medications: Not Appropriate Condition Multpiple Antipsychotics Used: No Problems: (1) Acute weakness Status: Acute (2) Persistent depressive disorder Optional Permanent Comment: patient likely meeting criteria for major depression upon admission., 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 ongoing conflictual relationship with concerning Last Edited By: Ag Lux on Feb 28, 2018 11:18 Status: Chronic Condition 1. continue treatment. 2. plan for transfer to [facility]. AG LUX MD Mar 08, 2018 12:24
[2018-03-08 13:41] LABS: INR 1.11
[2018-03-08] MEDS ORDERED: WARFARIN SOD 2.5 MG TAB PO ONE (14:25)
[2018-03-08 20:07] VITALS: BP 128/66
[2018-03-09] MEDS: [UNRECOGNIZED DRUG - OTHER] PO SCH (09:32)
[2018-03-09] MEDS: MIDODRINE 2.5 MG TAB PO SCH ×2 (09:32→13:29)
[2018-03-09] MEDS: POTASSIUM CHL 20 MEQ TABCR PO SCH (09:33)
[2018-03-09] MEDS: MULTIVITAMINS PO SCH (09:33)
[2018-03-09] MEDS: VENLAFAXINE XR 75 MG CAPCR PO SCH (09:33)
[2018-03-09 10:57] VITALS: BP 128/72
[2018-03-09] MEDS: WARFARIN SOD 2.5 MG TAB PO SCH (13:29)
--- NOTE | 2018-03-13 08:29 | SCHAAF DISCHARGE ---
DATE OF ADMISSION: February 19, 2018 DATE OF DISCHARGE: Entrance into [facility] March 09, 2018. ATTENDING PHYSICIAN Viraj Milan MD The patent was seen on March 09, 2018 at approximately 11:00 hours for note concerning this dictation. FINAL DIAGNOSES PER DSM-V 1. Persisting depressive disorder vs. depression secondary to general medical condition [place]'s disease. 2. Macular degeneration. 3. Generalized weakness. 4. Partner relational problem likely. REASON FOR ADMISSION This is a pleasant 87-year-old male who had been living at home with his significantly younger spouse. The patient's spouse indicating that she had done her best to take care of him at home, however, he has been getting more and more difficult to manage. The patient himself stating at home prior to admission, he had intentions to shoot himself with a gun. The patient was brought to the emergency room. During initial interview, the patient indicated in some ways logical approach to his dilemma. The patient stating he has lived a long life, he is becoming weak, he can no longer see or do the things he enjoys. The patient therefore, seeing the ending of his life as just a way to escape the inevitable quicker. 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 The patient likely was not eating quite the best at home and the patient's energy seemed to improve a little bit while he was on the floor. 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 The patient was tolerant. It was titrated to 75 mg. The patient no longer making suicidal threats and patient agreeing to discharge to [facility], work with PT and OT and continue treatment. On the unit, the patient worked with PT and OT as well and was very polite and cooperative with staff. No apparent suicidal behaviors were seen while the patient was on the unit and patient transferred to [facility]. PHYSICAL EXAMINATION Please see emergency room note. Notable for an 87-year-old male who is suffering generalized weakness overall. Vital signs at the time of admission to [facility]al [facility] Unit: Temperature 98.9, pulse 69, respiratory rate 16, blood pressure 135/67 and pulse oximetry 94% on room air. Vital signs at the time of discharge: Temperature 99.4, pulse 81, respiratory rate 18, blood pressure 128/72 and pulse oximetry 92% on room air. LABORATORY DATA CBC on 03/03/18 indicated WBC slightly slow at 4.4, hemoglobin slightly low at 13.4, hematocrit slightly low at 38.5. Chemistry panel was overall unremarkable. PT was 14.3, INR 1.11 on 03/08/18 and this patient remains on low dose Coumadin for prophylaxis against return of DVT. Urinalysis unremarkable on 03/07/18. TSH 0.8 at the time of admission. Toxicology screen negative with a nondetectable serum alcohol level at time of admission. MENTAL STATUS EXAMINATION GENERAL APPEARANCE, BEHAVIOR AND ATTITUDE: This is a cooperative, polite 87-year-old male. Frail appearing. Minimal psychomotor retardation ongoing. The patient making good eye contact. No bizarre mannerisms or tics and no periods of tearfulness. SPEECH: Soft at times, but largely of normal rate and rhythm. MOOD: Described as "Okay". AFFECT: Neutral to mildly full at times. THOUGHT PROCESSES: Logical and goal-directed, patient able to indicate a full understanding of transferring to [facility] and patient also able to remember events from proceeding days well throughout his stay. No loose associations or flight of ideas. THOUGHT CONTENT: Free of auditory or visual hallucinations, ideas of reference, thought broadcastings, delusions, obsessions or compulsions. The patient is adamantly denying suicidal intent or ideation upon discharge to [facility]. Denying homicidal ideation. SENSORIUM: Clear. COGNITION: Alert and oriented to person, place, time and situation. MEMORY: Immediate, recent and remote grossly intact. INTELLIGENCE: Historically average, based on history and interview. INSIGHT AND JUDGMENT: Considered limited due to medical concerns and generalized weakness at this time. Otherwise, patient's mood improving. RESULTS OF TESTING Imaging: CT of the head was performed on 02/22/18 after patient experienced a mild fall on the unit. 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 No acute intracranial abnormality was seen. Laboratory data: See above. Psychological testing: Not done. CONSULTATIONS The patient was visited from time to time by his outpatient provider Dr. Albert. TREATMENT Patient received medications, participated in individual and group therapy. HOSPITAL COURSE The patient initially calm and pleasant and remained that way throughout his stay. The patient interacting at times very well with nursing staff and eager to reminisce [place]. The patient again demonstrating no parasuicidal behaviors on the unit. The patient taking an active role in his treatment to the best of his abilities and the patient working with PT and OT up here on the unit as well. The patient's appetite slowly improving. CONDITION OF PATIENT ON DISCHARGE Stable and appropriate for entrance into further rehab care at [facility]. Considered a minimal risk to himself or others at this time. DISPOSITION The patient was discharged to the [facility]. The patient would follow up with labs particularly INR and further treatment with ophthalmology and vp security. The Crisis line was given should symptoms return. MEDICATIONS AT TIME OF DISCHARGE: 1. Fludrocortisone Acetate 0.1 mg tablet b.i.d. 2. Midodrine 5 mg tablet orally t.i.d. 3. Multivitamin with minerals daily. 4. Potassium Chloride 20 mEq daily with food. 5. Effexor XR 75 mg q am. 6. Warfarin 2.5 mg every other day at 1 p.m. The risks, benefits and alternatives of the above discharge plan were discussed. Informed consent was given to proceed with the above discharge plan by this competent patient, the patient's aware of plan and accepting facility [facility]. ELIGIO
== END 2018-03-09 15:15 | disposition home or self-care (01) | DRG 881 ==
LOC: BHS 13:14
PROVIDERS: ADMIT Psychiatry & Neurology Psychiatry; ATTEND Psychiatry & Neurology Psychiatry
DX: F34.1 Dysthymic disorder (principal); E27.1 Primary adrenocortical insufficiency; R45.851 Suicidal ideations; R53.1 Weakness; Z63.0 Problems in relationship with spouse or partner; H35.30 Unspecified macular degeneration; I95.9 Hypotension, unspecified; Z23 Encounter for immunization
CPT/HCPCS: 36415; 70450; 71045; 80305; 80320; 80329; 81001; 82040; 82247; 82310; 82374; 82435; 82565; 82607; 82652; 82746; 82947; 83735; 84075; 84132; 84155; 84295; 84439; 84443; 84450; 84460; 84481; 84484; 84520; 85025; 85610; 90674; 93005; 97162; 97166; 99284

== ENCOUNTER → 2018-02-19 | Outpatient (CLI) | payer MEDICARE, BC, OTHER ==
[2015-07-09 09:15] VITALS: BMI 24.8
[~2018-02-19] MED LIST changes: +MULT-859 PO; +POTA20PA31 PO; +POTA20TA85 PO; +VENL75CA58 PO
== END ==
LOC: AMB 08:49
PROVIDERS: ATTEND Nurse Practitioner
DX: R45.851 Suicidal ideations (principal); R42 Dizziness and giddiness; F03.90 Unspecified dementia, unspecified severity, without behavioral disturbance, psychotic disturbance, mood disturbance, and anxiety
CPT/HCPCS: A0425; A0429

== ENCOUNTER 2018-03-16 11:48 | Emergency (ER) | payer MEDICARE, BC ==
[2015-07-09 09:15] VITALS: Wt 62.6 kg
[~2018-03-16 11:48] MED LIST changes: -FENT1PAT40 TD; -LORA-1455 PO; -MORP100S32 PO; -OXYC-865 PO
--- NOTE | 2018-03-16 12:02 | ER Report ---
History and Physical Time Seen By MD: 12:02 HPI/ROS CHIEF COMPLAINT: Fall with complaint of left hip and thigh pain HISTORY OF PRESENT ILLNESS: 87-year-old male patient presents to emergency room with complaint of a fall. Patient states that he fell yesterday. He states when he fell that he had gone outside and slipped on the ice. He states that he got up in the air 4-5 feet and landed on his left hip. Patient states that he did hit his head. He denies having any headache. Patient also states that he's been having pain for the past 3 days. He denies any nausea, vomiting or diarrhea. Report from the shelter states that the fall actually occurred today and the patient was able to get himself up off the ground. They state that the areas of injury seem to change from the hip to the ankle to the knee back to the hip. They're concerned that this may be more of an attention seeking behavior. REVIEW OF SYSTEMS: Respiratory: No cough, no dyspnea. Cardiovascular: No chest pain, no palpitations. Gastrointestinal: No vomiting, no abdominal pain. Musculoskeletal: As noted above Allergies: Coded Allergies: No Known Drug Allergies (Unverified , 03/16/18) Home Meds Active Scripts Lorazepam (ATIVAN) 0.5 Mg Tablet, 1-2 TAB PO Q4-6H, #28 TAB Prov:RENU ESCUDERO MD 03/16/18 Morphine Sulfate 20 MG/ML Oral Solution (ROXANOL 20 MG/ML) 100 Mg/5 Ml Solution, 0.5-1 ML PO Q1H PRN for pain, #30 ML Prov:RENU ESCUDERO MD 03/16/18 Fludrocortisone Acetate (FLUDROCORTISONE ACETATE) 0.1 Mg Tablet, 0.1 MG PO BID for 30 Days, #60 TAB 4 Refills Prov:RENU ESCUDERO MD 12/19/17 Reported Medications Multivits,Ca,Minerals/Iron/Fa (THERA-M TABLET) 1 Each Tablet, 1 EACH PO DAILY 03/05/18 Potassium Chloride (KLOR-CON M20) 20 Meq Tab.er.prt, 20 MEQ PO QDAY 03/05/18 Venlafaxine Hcl (EFFEXOR XR) 75 Mg Cap.er.24h, 75 MG PO QDAY 03/05/18 Midodrine Hcl (MIDODRINE HCL) 5 Mg Tablet, 5 MG PO TID 03/05/18 Discontinued Reported Medications Warfarin Sodium (WARFARIN SODIUM) 2.5 Mg Tablet, 2.5 MG PO QODAY@1300 09/26/17 Past Medical/Surgical History Patient has a past medical history of DVT, hypertension, pneumonia, bowel obstruction, cholecystitis, [place]'s disease. Patient has a surgical history of cataract surgery, tonsillectomy, bowel surgery, cholecystectomy, appendectomy. Reviewed Nurses Notes: Yes Smoking Status: Never Smoker Exposure to Second Hand Smoke?: No Hx Substance Use Disorder: No Hx Alcohol Use: No Constitutional Vital Sign - Last 24 Hours 03/16/18 03/16/18 03/16/18 03/16/18 11:48 11:59 12:00 12:01 Pulse 88 96 Resp 23 B/P (MAP) 128/72 (90) 121/75 (90) 121/75 Pulse Ox 94 O2 Delivery Room Air 03/16/18 03/16/18 03/16/18 03/16/18 12:18 12:30 12:48 13:00 Pulse 89 87 Resp 14 B/P (MAP) 126/72 (90) 129/73 (91) Pulse Ox 91 91 03/16/18 03/16/18 03/16/18 03/16/18 13:18 13:30 13:35 14:00 Pulse 82 86 B/P (MAP) 138/76 (96) 137/72 (93) Pulse Ox 92 89 03/16/18 03/16/18 03/16/18 03/16/18 14:05 14:10 14:40 15:00 Pulse 82 83 79 B/P (MAP) 143/62 (89) Pulse Ox 87 90 89 03/16/18 03/16/18 03/16/18 03/16/18 15:10 15:15 15:45 16:00 Pulse 78 79 79 B/P (MAP) 125/78 (94) Pulse Ox 89 90 91 Physical Exam General Appearance: The patient is alert, has no immediate need for airway protection and no current signs of toxicity. Respiratory: Chest is non tender, lungs are clear to auscultation. Cardiac: regular rate and rhythm Gastrointestinal: Abdomen is soft and non tender, no masses, bowel sounds normal. Musculoskeletal: Neck: Neck is supple and non tender. Extremities have full range of motion and are non tender. Patient did have some tenderness to the left hip, left thigh. There is no bruising noted. Skin: No rashes or lesions. DIFFERENTIAL DIAGNOSIS: After history and physical exam differential diagnosis was considered for contusion, fracture, sprain. Medical Decision Making EKG/Imaging Imaging HIP LEFT Indication: Hip pain. Comparison: None available Findings: There is a displaced subcapital left femoral neck fracture. The shaft is superiorly migrated. The remainder the bones of the pelvis are unremarkable. IMPRESSION: 1. Mildly displaced left femoral neck fracture Report Dictated By: Mykel Brannon MD at 03/16/2018 12:58 PM Report E-Signed By: Mykel Brannon MD at 03/16/2018 12:59 PM EXAMINATION: Head CT without intravenous contrast HISTORY: Fall with pain. COMPARISON: 02/22/2018. TECHNIQUE: Contiguous axial images were obtained from the skull base to the vertex without intravenous contrast. Sagittal and coronal reformatted images are also submitted. One of the following dose optimization techniques was utilized in the performance of this exam: Automated exposure control; adjustment of the mA and/or kV according to the patient's size; or use of an iterative reconstruction technique. Specific details can be referenced in the facility's radiology CT exam operational policy. 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 Patchy and confluent hypoattenuation in the cerebral white matter is similar to the previous examination, probably chronic small vessel ischemic changes. Mild generalized cerebral volume loss with corresponding sulcal and ventricular prominence. The basal cisterns are patent. No midline shift, acute hemorrhage, acute infarct, or mass. Calvarium / scalp: Negative. No acute fracture. Skull base / visualized face: Negative. Visualized sinuses / orbits: The lenses have been extracted or replaced. IMPRESSION: No acute intracranial abnormality. Stable chronic findings. Report Dictated By: Enrique Arciniega MD at 03/16/2018 1:03 PM Report E-Signed By: Enrique Arciniega MD at 03/16/2018 1:15 PM Left femur Indication: Trauma, pain Comparison: None available Findings: Displaced subcapital left femoral neck fracture with superior migration of the shaft and varus angulation at the hip. The remainder the femur is unremarkable. IMPRESSION: 1. Displaced subcapital left femoral neck fracture Report Dictated By: Mykel Brannon MD at 03/16/2018 12:59 PM Report E-Signed By: Mykel Brannon MD at 03/16/2018 1:00 PM ED Course/Re-evaluation ED Course Patient was admitted to an exam room, history and physical were obtained. Differential diagnoses were considered. On examination lungs are clear, heart is regular, abdomen soft nontender. Patient did have tenderness to the left hip as well as the left femur. Patient states that he fell and hit his head when he fell. As result CT scan of the head was done in addition to x-rays of the left hip and left femur. Patient did have a surgical neck fracture of the left femur. I discussed the findings with the patient's primary care provider, Dr. Escudero. She did come down and discussed options with the patient and his . They discussed surgical options which the patient stated he did not want to do. Dr. Escudero did arrange for him to be admitted to hospice. Hospice did come and got all the paperwork done. Patient was then transported via EMS to hospice house. Patient and were in agreement with plan. Decision to Disposition Date: Mar 16, 2018 Decision to Disposition Time: 15:11 Depart Departure Latest Vital Signs Vital Signs Date Time Temp Pulse Resp B/P (MAP) Pulse Ox O2 Delivery O2 Flow Rate FiO2 03/16/18 16:00 125/78 (94) 03/16/18 15:45 79 91 03/16/18 12:18 14 03/16/18 12:01 Room Air Impression: Primary Impression: Closed left hip fracture Condition: Condition Unchanged Disposition: HOME OR SELF-CARE Referrals: RENU ESCUDERO MD (PCP) Patient Instructions: Hip Fracture (ED) Additional Instructions: Limit activity by pain. Take the pain medication as directed. You will be followed by Dr. Escudero. She has already written orders. Call her office with any concerns. Problem Qualifiers Primary Impression: Closed left hip fracture Encounter type: initial encounter Qualified Codes: S72.002A - Fracture of unspecified part of neck of left femur, initial encounter for closed fracture MACY PATTERSON REPRODUCTION ARTIST Mar 16, 2018 12:02
--- NOTE | 2018-03-16 13:03 | RADIOLOGY IMAGING REPORT ---
[place] [facility] [place] NAME: Gary Puente : 1930 MR: [id number] V: [id number] EXAM DATE: ORDERING PHYSICIAN: MACY PATTERSON TECHNOLOGIST: Location: [facility] Patient: Gary Puente : 1930 Visit/Account:[id number] Date of Sevice: 03/16/2018 Left femur Indication: Trauma, pain Comparison: None available Findings: Displaced subcapital left femoral neck fracture with superior migration of the shaft and varus angula tion at the hip. The remainder the femur is unremarkable. IMPRESSION: 1. Displaced subcapital left femoral neck fracture Report Dictated By: Mykel Brannon MD at 03/16/2018 12:59 PM Report E-Signed By: Mykel Brannon MD at 03/16/2018 1:00 PM WSN:[id number]
--- NOTE | 2018-03-16 13:03 | RADIOLOGY IMAGING REPORT ---
FACILITY: [facility] [place] PATIENT NAME: Gary Puente : 1930 MR: [id number] V: [id number] EXAM DATE: ORDERING PHYSICIAN: MACY PATTERSON TECHNOLOGIST: Location: [facility] [place] Patient: Gary Puente : 1930 Visit/Account:[id number] Date of Sevice: 03/16/2018 HIP LEFT Indication: Hip pain. Comparison: None available Findings: There is a displaced subcapital left femoral neck fracture. The shaft is superiorly migrated. The rem ainder the bones of the pelvis are unremarkable. IMPRESSION: 1. Mildly displaced left femoral neck fracture Report Dictated By: Mykel Brannon MD at 03/16/2018 12:58 PM Report E-Signed By: Mykel Brannon MD at 03/16/2018 12:59 PM WSN:[id number]
--- NOTE | 2018-03-16 13:20 | RADIOLOGY IMAGING REPORT ---
FACILITY: [facility] [place] PATIENT NAME: Gary Puente : 1930 MR: [id number] V: [id number] EXAM DATE: ORDERING PHYSICIAN: MACY PATTERSON TECHNOLOGIST: Location: [facility] Patient: Gary Puente : 1930 Visit/Account:[id number] Date of Sevice: 03/16/2018 EXAMINATION: Head CT without intravenous contrast HISTORY: Fall with pain. COMPARISON: 02/22/2018. TECHNIQUE: Contiguous axial images were obtained from the skull base to the vertex without intraven ous contrast. Sagittal and coronal reformatted images are also submitted. One of the following dose optimization techniques was utilized in the performance of this exam: Autom ated exposure control; adjustment of the mA and/or kV according to the patient's size; or use of an i terative reconstruction technique. Specific details can be referenced in the facility's radiology C T exam operational policy. FINDINGS: Brain and intracranial structures: Multifocal encephalomalacia in the right cerebral hemisphere is u nchanged. Patchy and confluent hypoattenuation in the cerebral white matter is similar to the previou s examination, probably chronic small vessel ischemic changes. Mild generalized cerebral volume loss with corresponding sulcal and ventricular prominence. The basal cisterns are patent. No midline shift, acute hemorrhage, acute infarct, or mass. Calvarium / scalp: Negative. No acute fracture. Skull base / visualized face: Negative. Visualized sinuses / orbits: The lenses have been extracted or replaced. IMPRESSION: No acute intracranial abnormality. Stable chronic findings. Report Dictated By: Enrique Arciniega MD at 03/16/2018 1:03 PM Report E-Signed By: Enrique Arciniega MD at 03/16/2018 1:15 PM WSN:[id number]
[2018-03-16] MEDS ORDERED: MORP100S32 PO (14:25)
[2018-03-16] MEDS ORDERED: LORA-1455 PO (14:25)
[2018-03-16 16:00] VITALS: BP 125/78
[2018-03-16] MEDS ORDERED: OXYC-865 PO (18:21)
[2018-03-19] MEDS ORDERED: FLUD0.1T12 PO (14:20)
== END 2018-03-16 17:01 | disposition home or self-care (01) ==
LOC: ER 11:54
DX: S72.012A Unspecified intracapsular fracture of left femur, initial encounter for closed fracture (principal); W00.0XXA Fall on same level due to ice and snow, initial encounter
CPT/HCPCS: 70450; 73502; 73552; 99284; A9270

== ENCOUNTER → 2018-03-16 | Outpatient (CLI) | payer MEDICARE, BC ==
[2015-07-09 09:15] VITALS: BMI 24.8
[~2018-03-16] MED LIST changes: +FENT1PAT40 TD; +LORA-1455 PO; +MORP100S32 PO; +MULT-859 PO; +OXYC-865 PO; +POTA20PA31 PO; +POTA20TA85 PO; +VENL75CA58 PO
== END ==
LOC: AMB 16:53
PROVIDERS: ATTEND Nurse Practitioner
DX: S72.002A Fracture of unspecified part of neck of left femur, initial encounter for closed fracture (principal); W01.0XXA Fall on same level from slipping, tripping and stumbling without subsequent striking against object, initial encounter; Z51.5 Encounter for palliative care
CPT/HCPCS: A0425; A0428